=== PATIENT | female | born 1970 | race Caucasian/White ===

== ENCOUNTER 2023-08-16 10:26 | Observation (INO) ==
--- NOTE | 2023-08-16 11:18 | History & Physical Report ---
Date of Service August 16, 2023 Assessment & Plan (1) C. difficile colitis: Plan: Tested positive . Vancomycin initially worked but no longer working therefore will switch to Dificid - unable to get this outpatient today therefore will remain in hospital overnight. (2) Diarrhea: Plan: ?underlying IBD ?infectious Repeat stool PCR and c. diff PCR (3) Chronic blood loss anemia: Plan: Appears stable from outpatient labs, continue iron supplementation as outpatient (4) Hematochezia: Plan VTE Prophylaxis - contraindicated with hematochezia Diet - low fiber Disposition - admit to med/surg Admission and Anticipated Discharge Date Admission Date: August 16, 2023 History of Present Illness Chief Complaint: Bloody diarrhea Primary Care Provider: Dian Duncan PA-C Kelli Jorge is a 52 year old female who presents as a direct admission to [facility] due to bloody diarrhea. This has been going on intermittently for the last 8-9 months, getting much worse in May with intermittent blood in watery stool. C. difficile test was collected on with culture with reflex toxin PCR both positive. She was given a course of vancomycin. Calprotectin was noted to be significantly elevated at the same time at 2510 mcg/g. Vancomycin 10 days from felt 100x better. She never came off it. Called her PCP on day 8 because symptoms getting worse and she was sent another course of vancomycin which she is currently on. Last took this morning. Each day getting worse and regressing. Going twice every hour. Still bloody. Taking iron supplement since labs as outpatient came back with iron deficient anemia. Hemoglobin 10.5 [07/11]. She denies any dizziness, lightheadedness or shortness of breath. Allergies Allergy/AdvReac Type Severity Reaction Status Date / Time doxycycline Allergy Mild Vomiting Verified 12/08/21 10:32 oxybutynin Allergy Unknown "WEIRD Verified 12/08/21 10:32 EFFECTS" Penicillins Allergy Unknown HIVES Verified 12/08/21 10:32 sertraline AdvReac Unknown "WEIRD Verified 12/08/21 10:32 EFFECTS" Home Medications Medication Instructions Recorded Confirmed Type biotin 2,500 mcg capsule 5 mg PO QAM 10/02/21 08/16/23 History cetirizine 10 mg tablet (Zyrtec) 10 mg PO QAM PRN allergy 10/02/21 08/16/23 History cholecalciferol (vitamin D3) 25 25 mcg PO QAM 10/02/21 08/16/23 History mcg (1,000 unit) capsule ashwagandha root extract 300 mg 300 mg PO QAM 10/06/21 08/16/23 History capsule collagen,hydrolysate 500 mg-biotin 1 cap PO QAM 11/19/21 08/16/23 History 800 mcg-ascorbic acid 50 mg capsule fidaxomicin 200 mg tablet (Dificid) 200 mg PO BID 10 days #20 tabs 08/16/23 Rx vancomycin 125 mg capsule 125 mg PO Q6 08/16/23 08/16/23 History Past Med/Surg History Medical History (Updated 08/17/23 @ 10:30 by Lowell Gomez MD) Cholelithiasis Surgical History (Updated 12/08/21 @ 11:53 by Guicho Gomes DO, HARRY) Hx laparoscopic cholecystectomy (11/24/21) Laparoscopic Cholecystectomy(Not Applicable) - Guicho Gomes DO, FACS H/O knee surgery RIGHT S/P endometrial ablation H/O wisdom tooth extraction H/O tubal ligation Family History Grandfather (Maternal) Colorectal cancer Myocardial infarction Father Myocardial infarction Mother Hypertension Denies family history of Ovarian cancer Prostate cancer Breast cancer Social History Smoking Status: Never smoker Tobacco Type: Cigarettes Second Hand Exposure: No; Do You Dip or Chew Tobacco: No; Hx Alcohol Use: No Hx Substance Use: No Preferred Language: Czech Communication Ability: Effective Firer T[employer] Kiln Required: No Beliefs That Will Affect Care: None marital status: Current Living Situation: Alone and Family Current Living Situation Comment: lives with son current occupational status: employed current occupation: [employer] How many Children do You have: 2 Other Information That Helps Us Care for You: No Feels Safe at Home: Yes Safety Concerns: Feels Safe At This Time Childhood Exposure to Second-Hand Smoke: Yes Diet: regular caffeine: Yes during the past year weight has: remained stable Dental Care, Regularly: Yes Seatbelt Use: always Sunscreen Use: Yes Assistive Devices: None Review of Systems Review of Systems: All systems reviewed & are unremarkable except as noted in HPI & below Physical Exam Constitutional: WD/WN, vitals as above ENMT: external ear and nose normal, oropharynx normal Mouth: oral mucous membranes not dry Respiratory: normal respiratory effort, lungs clear to auscultation Cardiovascular: RRR, no murmur, no edema Gastrointestinal (Abdomen): normal bowel sounds, soft, nontender, no hepatosplenomegaly Musculoskeletal: no cyanosis or clubbing, extremities motor strength 5/5 Skin: no rashes, warm and dry Neurologic: moves all extremities and awake; not confused Code Status & VTE Plan Code Status Full PG Care Time/CCT Total # of Minutes Spent Total Time Spent with Patient: Total time spent is greater than 50% in coordination of care (as documented) at patient's floor/unit and/or counseling patient: Coding Level of Care Code 08997 INT INP/OBS CARE 2/55MIN Diagnoses C. difficile colitis A04.72 Diarrhea R19.7 Chronic blood loss anemia D50.0 Hematochezia K92.1
[2023-08-16] MEDS: FIDAXOMICIN 200 MG TAB PO SCH (13:51)
[2023-08-16 14:18] LABS: Basophils # (auto) 0.06 K/uL (0.00-0.20); Eosinophils # (auto) 0.26 K/uL (0.00-0.50); Eosinophils % (auto) 4.2 %; Hematocrit (blood only) 32.5 % (37.0-47.0); Hemoglobin 9.9 g/dl (12.0-16.0); Immature Granulocytes # (auto) 0.01 K/uL (0.01-0.20); Immature Granulocytes % (auto) 0.2 %; Lymphocytes # (auto) 1.07 K/uL (1.20-3.40); Lymphocytes % (auto) 17.2 %; Mean Corpuscular Hemoglobin 23.8 pg (25.0-34.0); Mean Corpuscular Hgb Conc 30.5 g/dL (32.0-36.0); Mean Corpuscular Volume 78.1 fL (80.0-100.0); Mean Platelet Volume 9.3 fL (9.4-12.4); Monocytes # (auto) 0.39 K/uL (0.11-0.59); Monocytes % (auto) 6.3 %; Neutrophils # (auto) 4.44 K/uL (1.40-6.50); Neutrophils % (auto) 71.1 %; Platelet Count 327 K/uL (130-400); RDW Coefficient of Variation 14.1 % (11.5-14.5); RDW Standard Deviation 39.8 fL (36.4-46.3); Red Blood Count 4.16 M/uL (4.20-5.40); White Blood Count 6.23 K/ul (4.8-10.8)
[2023-08-16 14:38] LABS: Albumin Globulin Ratio 1.4 (0.9-2); Albumin Level 4.3 gm/dl (3.4-5.0); BUN Creatinine Ratio 17.2 (10-20); Bilirubin,Total 0.3 mg/dl (0.2-1.0); Calcium 9.7 mg/dl (8.6-10.3); Creatinine Clr Calc Pharmacy 99.6 ml/min; Est GFR (African American) 120.6 ml/min; Est GFR (Non-African American) 104.1 ml/min; Magnesium 2.1 mg/dl (1.7-2.4); Potassium 4.1 mmol/L (3.5-5.1); Total Protein 7.3 gm/dl (6.0-8.3)
[2023-08-16 14:46] LABS: Partial Thromboplastin Ratio 0.9; Partial Thromboplastin Time 25 Seconds (21-31); Prothrombin Time 10.5 Seconds (9.0-12.0)
[2023-08-16 16:58] LABS: Adenovirus F 40/41 PCR Not Detected (NotDetected); Astrovirus PCR Not Detected (NotDetected); Campylobacter PCR Not Detected (NotDetected); Cryptosporidium PCR Not Detected (NotDetected); Cyclospora cayetanensis PCR Not Detected (NotDetected); Entamoeba histolytica PCR Not Detected (NotDetected); Enteroaggregative E.coli(EAEC) Not Detected (NotDetected); Enteropathogenic E.coli (EPEC) Not Detected (NotDetected); Enterotoxigenic E.coli (ETEC) Not Detected (NotDetected); Giardia lamblia PCR Not Detected (NotDetected); Norovirus GI/GII PCR Not Detected (NotDetected); Plesiomonas shigelloides PCR Not Detected (NotDetected); Rotavirus A PCR Not Detected (NotDetected); Salmonella PCR Not Detected (NotDetected); Sapovirus PCR Not Detected (NotDetected); Shiga-like Toxin E.coli (STEC) Not Detected (NotDetected); Shigella/Enteroinvasive E.coli Not Detected (NotDetected); Yersinia enterocolitica PCR Not Detected (NotDetected)
[2023-08-16] MEDS: AZITHROMYCIN 250 MG TAB PO ONE (17:45)
--- NOTE | 2023-08-16 19:19 | Communication Note ---
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 Discussed with patient. Noted she has side effect of vomiting for doxycycline therefore will give one off dose azithromycin 1000mg PO. Recommend repeat testing as this would be a very unusual case. C. diff now negative therefore will discontinue further Dificid. Result needs to be reported to [facility] Communicable Disease ([phone]) within 24 hours, closed at the current time.
[2023-08-16] MEDS ORDERED: ONDANSETRON INJ 2 MG/ML 2 ML VIAL IV PRN (21:37)
[2023-08-16] MEDS ORDERED: ACETAMINOPHEN 325 MG TAB PO PRN (21:37)
--- OUTSIDE RECORDS SUMMARY | 2023-08-16 23:03 | External Medical Summary | Continuity of Care Document ---
Author Name Unknown Organization [facility] [address] [facility] Address [address] [place], [place] [id number] Care Team Providers Care Microelectronics Technician Name Role Phone Dian Duncan Primary Care Physician [phone] [id number] Date[facility]s): 07/11/23 - 07/11/23 [facility] [id number], [address] [place] [address] [phone] Encounter Diagnosis Bloody stools(Discharge Diagnosis) - 07/11/23 Change in bowel habits(Discharge Diagnosis) - 07/11/23 Diarrhea(Discharge Diagnosis) - 07/11/23 Diffuse abdominal pain(Discharge Diagnosis) - 07/11/23 Abdominal mass(Discharge Diagnosis) - 07/11/23 GERD (gastroesophageal reflux disease)(Discharge Diagnosis) - 07/11/23 Discharge Disposition: Home or Self Care Attending Physician: SHELBY Duncan Jessica A Allergies, Adverse Reactions, Alerts Substance Reaction Severity Status doxycycline vomiting Active oxybutynin blurred vision Active penicillins hives Active Zoloft 1 Active 1Worked well for depression, but had moderate weight gain. Assessment and Plan Extracted from: Title:bloody diarrhea, abd fullness/mass, change in bowel habits Author:SHELBY Duncan Jessica A Date:07/11/23 1.Bloody stools Bloody stools have been chronic, intermittentand worsening. Goal is resolution of symptoms and etiologyis unclear,but concerning. Differential diagnoses:Inflammatory bowel disease, neoplasm, hemorrhoids, mass/tumor, PUD, infectious colitis, diverticulitis, other etiology. CBC with differential, CMP, TSH, celiac screening, ESR, CRP and stool studiesordered, including C. difficile, stool cultures and fecal calprotectin level. Also, givenfirmness and possible mass palpable on examination stat CT scan of the abdomen and pelviswith oral and IV contrast was ordered. I will contact patientonce these results are received. Recommend proceeding with colonoscopy as well and patient is agreeable. Order will be placed for colonoscopy once results of CT scan is received. 2.Change in bowel habits Change in bowel habits is new in the last 1 to 2 months and uncontrolled. Goal is resolution of symptoms. As above in #1. 3.Diarrhea Diarrheaissubacute on chronic and uncontrolled. Goal is resolution of symptoms. As above in #1. 4.Diffuse abdominal pain Diffuse abdominal pain is subacute on chronic and uncontrolled. Goal is resolution of symptoms. As above in #1. 5.Abdominal mass As above in #1. 6.GERD (gastroesophageal reflux disease) GERD is subacute on chronic and uncontrolled. Goal is resolution of symptoms. Startomeprazole 40 mg, 1 tab p.o. every morning x 8 weeks. Will also plan toget an EGD at the same time as her colonoscopy, but workupwill first be completed as above in #1. Time spent on pre-visit plannin minutes on chart review Face to face time spent w/ patient:24 minutes Time spent documenting pertinent clinical information into the EMR:10 minutes Total time: 34 minutes Medications [facility] Start: 03/04/21 15:59:00 [facility] Start Date: 03/04/21 Status: Ordered biotin 5000 mcg oral capsule Start: 10/04/19 13:25:00 EDT, See Instructions, take1 tablet PO daily Start Date: 10/04/19 Status: Ordered collagen topical powder Start: 10/02/20 13:57:00 EDT, See Instructions, Note to Pharmacy: 1 scoop per day in smoothie or water Start Date: 10/02/20 Status: Ordered ferrous sulfate 325 mg (65 mg elemental iron) oral tablet Start: 07/12/23 16:09:00 EST, 1 tab, PO, Daily, Disp# 30 tab, Refills: 5, may take with food to minimize abdominal discomfort, [id number] Start Date: 07/12/23 Stop Date: 01/08/24 Status: Ordered magnesium gluconate 500 mg oral tablet Start: 01/29/21 9:52:00 EDT, 2 tab, PO, Daily Start Date: 01/29/21 Status: Ordered omeprazole 40 mg oral delayed release capsule Start: 07/11/23 13:46:00 EST, 1 cap, PO, Daily, Disp# 30 cap, Refills: 1, Pharmacy: [facility] #[id number] Start Date: 07/11/23 Stop Date: 09/09/23 Status: Ordered Suprep Bowel Prep Kit oral liquid Start: 07/13/23 17:06:00 EST, See Instructions, Disp# 354 mL, Refills: 0, Take as directed., [id number] Start Date: 07/13/23 Status: Ordered Vitamin D3 1000 intl units (25 mcg) oral tablet Start: 03/04/21 16:00:00 EDT, 1 tab, PO, Daily Start Date: 03/04/21 Status: Ordered ZyrTEC 10 mg oral tablet Start: 01/29/21 9:55:00 EDT, 1 tab, PO, Daily, PRN: as needed for allergy symptoms Start Date: 01/29/21 Status: Ordered Mental Status 07/11/23 Barriers to Learning one year None evide nt Mandatory Health Literacy Documentation Yes Health Literacy Communication Barriers N ever Primary Language [place] Problem List Condition Confirmation Course Effective Dates Status Health St atus Informant Anxiety Confirmed Active General examination finding Confirmed Active IT band syndrome Confirmed Active Right knee pain Confirmed Active Depression, major Confirmed Active Migraine Confirmed Active Pain 1 Confirmed Active PMDD (premenstrual dysphoric disorder) Confirmed Active Knee MCL sprain Confirmed Active Tear of medial meniscus of right knee Confirmed Active Weight disorder Confirmed Active 1right knee Diagnosis Diagnosis Type Effective Dates Health Status Cl inical Service Informant Change in bowel habits Discharge Diagnosis 07/11/23 Diffuse abdominal pain Discharge Diagnosis 07/11/23 Diarrhea Discharge Diagnosis 07/11/23 Abdominal mass Discharge Diagnosis 07/11/23 Bloody stools Discharge Diagnosis 07/11/23 GERD (gastroesophagea l reflux disease) Discharge Diagnosis 07/11/23 Procedures Procedure Date Related Diagnosis Body Site Status CT of abdomen and pelvis wit h contrast 1 07/11/23 Completed Laparoscopic cholecystectomy 2 11/25/21 Completed Ultrasound scan of upper abdomen 3 09/24/21 Completed Diagnostic mammogram 4 03/12/21 Co mpleted Arthroscopic partial medial meniscectomy of right knee 5 11/12/15 Com pleted X-ray of right knee 6 09/03/15 Com pleted LASIK 7 Completed [facility]: [facility]. No acute abnormalities are seen to explain abdominal pain [facility]: 1. Cholelithiasis without sonographic evidence of acute cholecystitis 4Rebecca Jorge Impression: ACR BI-RADS CATEGORY 2: BENIGN, ULTRASOUND ACR BI-RADS CATEGORY 2: BENIGN 1. No suspicious mammographic or sonographic abnormality at the sites of the bilateral upper outer quadrant breast lumps and associated cyclical tenderness pointed out by the patient. No evidence of malignancy [facility] 6No acute fractures or dislocations. 7eye surgery Results Laboratory List Name Date CBC w/ Diff. (CBC w/ Diff-ARLN) 07/11/23 Comprehensive Metabolic Panel. (Comprehe nsive Metabolic Panel-[facility]) 07/11/23 IgA. (IgA-[facility]) 07/11/23 Thyroid Stimulating Hormone. (Thyroid St imulating Hormone-[facility]) 07/11/23 Tissue Transglutaminase Ab, IgA -[facility] ( Tissue Transglutaminase Ab, IgA-[facility]) 07/11/23 Most recent to oldest [Reference Range]: 1 Bilirubin, Total (QST) [0.2-1.2 mg/dL] 0 .4 mg/dL 1 (07/11/23 2:00 PM) WBC Count-[facility] [3.8-10.8 Thousand/uL] 6 .5 Thousand/uL 2 (07/11/23 2:00 PM) CRP-[facility] [<8.0 mg/L] 2.5 mg/L 3 (07/11/23 2:00 PM) Iron-[facility] [45-160 mcg/dL] 24 mcg/dL 4 *LOW* (07/11/23 2:00 PM) BUN-[facility] [7-25 mg/dL] 9 mg/dL 5 (07/11/23 2:00 PM) Creatinine-[facility] [0.50-1.03 mg/dL] 0.77 mg/dL 6 (07/11/23 2:00 PM) BUN/Creat Ratio-[facility] [6-22 (calc)] SEE NOTE: (calc) 7 (07/11/23 2:00 PM) Na-[facility] [135-146 mmol/L] 140 mmol/L 8 (07/11/23 2:00 PM) K-[facility] [3.5-5.3 mmol/L] 4.2 mmol/L 9 (07/11/23 2:00 PM) Cl-[facility] [98-110 mmol/L] 103 mmol/L 10 (07/11/23 2:00 PM) CO2-[facility] [20-32 mmol/L] 28 mmol/L 11 (07/11/23 2:00 PM) Ca-[facility] [8.6-10.4 mg/dL] 9.6 mg/dL 12 (07/11/23 2:00 PM) MPV-[facility] [7.5-12.5 fL] 10.0 fL 13 (07/11/23 2:00 PM) Absolute Neutrophils-[facility] [4666-4975 ce lls/uL] 4368 cells/uL 14 (07/11/23 2:00 PM) Absolute Lymphocytes-[facility] [850-3900 enoch ls/uL] 1222 cells/uL 15 (07/11/23 2:00 PM) Absolute Monocytes-[facility] [200-950 cells/ uL] 468 cells/uL 16 (07/11/23 2:00 PM) Absolute Eosinophils-[facility] [15-500 cells /uL] 390 cells/uL 17 (07/11/23 2:00 PM) Absolute Basophils-[facility] [0-200 cells/uL ] 52 cells/uL 18 (07/11/23 2:00 PM) Neutrophils-[facility] 67.2 % 19 (07/11/23 2:00 PM) Lymphocytes-[facility] 18.8 % 20 (07/11/23 2:00 PM) Monocytes-[facility] 7.2 % 21 (07/11/23 2:00 PM) Eosinophils-[facility] 6.0 % 22 (07/11/23 2:00 PM) Basophils-[facility] 0.8 % 23 (07/11/23 2:00 PM) Globulin-[facility] [1.9-3.7 g/dL (calc)] 2.5 g/dL (calc) 24 (07/11/23 2:00 PM) A/G Ratio-[facility] [1.0-2.5 (calc)] 1.7 (ca lc) 25 (07/11/23 2:00 PM) ESR-[facility] [< OR = 20] 29 26 *HI* (07/11/23 2:00 PM) Hemoglobin Refl [11.7-15.5 g/dL] 10.5 g/ dL 27 *LOW* (07/11/23 2:00 PM) Hematocrit Refl [35.0-45.0 %] 33.2 % 28 *LOW* (07/11/23 2:00 PM) RBC Refl [3.80-5.10 Million/uL] 4.21 Mil lion/uL 29 (07/11/23 2:00 PM) MCV Refl [80.0-100.0 fL] 78.9 fL 30 *LOW* (07/11/23 2:00 PM) MCH Refl [27.0-33.0 pg] 24.9 pg 31 *LOW* (07/11/23 2:00 PM) RDW Refl [11.0-15.0 %] 13.9 % 32 (07/11/23 2:00 PM) Alkaline Phosphatase (ALP) [37-153 U/L] 91 U/L 33 (07/11/23 2:00 PM) Albumin, Serum [3.6-5.1 g/dL] 4.3 g/dL 3 4 (07/11/23 2:00 PM) Immunoglob A [47-310 mg/dL] 176 mg/dL 35 (07/11/23 2:00 PM) ALT [6-29 U/L] 11 U/L 36 (07/11/23 2:00 PM) tTG-IgA Ab <1.0 U/mL 37 (07/11/23 2:00 PM) eGFR-QST [> OR = 60 mL/min/1.73m2] 94 mL /min/1.73m2 38 (07/11/23 2:00 PM) MCHC (QST) [32.0-36.0 g/dL] 31.6 g/dL 39 *LOW* (07/11/23 2:00 PM) Ferritin (QST) [16-232 ng/mL] 4 ng/mL 40 *LOW* (07/11/23 2:00 PM) TSH (QST) 0.79 mIU/L 41 (07/11/23 2:00 PM) AST [10-35 U/L] 15 U/L 42 (07/11/23 2:00 PM) Glucose-Qst [65-99 mg/dL] 99 mg/dL 43 (07/11/23 2:00 PM) Platelet Count [140-400 Thousand/uL] 366 Thousand/uL 44 (07/11/23 2:00 PM) Total Protein-QST [6.1-8.1 g/dL] 6.8 g/d L 45 (07/11/23 2:00 PM) 1Result Comment: Specimen Received d/t: 07/12/2023 03:24:00 Lab test performed by: [employer] [facility] [employer] [address] [place] [address]Pratik Maurice MD 2Result Comment: Specimen Received d/t: 07/12/2023 03:24:00 Lab test performed by: [facility] [employer] [address] [place] [address] Milvia Maurice MD 3Result Comment: Specimen Received d/t: 07/12/2023 03:24:00 Lab test performed by: [facility] [employer] Milvia Maurice MD 4Result Comment: Specimen Received d/t: 07/12/2023 03:24:00 Lab test performed by: [employer] [facility] [employer] Milvia Maurice MD 5Result Comment: Specimen Received d/t: 07/12/2023 03:24:00 Lab test performed by: [facility] [employer] [place], [place] Milvia Maurice MD 6Result Comment: Specimen Received d/t: 07/12/2023 03:24:00 Lab test performed by: [employer] [facility] [employer] [address] [place] Milvia Maurice MD 7Result Comment: Not Reported: BUN and Creatinine are within reference range. Specimen Received d/t: 07/12/2023 03:24:00 Lab test performed by: [employer] [facility] [employer] Milvia Maurice MD 8Result Comment: Specimen Received d/t: 07/12/2023 03:24:00 Lab test performed by: [employer] [facility] [employer] [address] [place] Milvia Maurice MD 9Result Comment: Specimen Received d/t: 07/12/2023 03:24:00 Lab test performed by: [employer] [facility] [employer] [address] [place] Milvia Maurice MD 10Result Comment: Specimen Received d/t: 07/12/2023 03:24:00 Lab test performed by: [employer] [facility] [employer] [address] [place] Milvia Maurice MD 11Result Comment: Specimen Received d/t: 07/12/2023 03:24:00 Lab test performed by: [employer] [facility] [employer] [address] [place] Milvia Maurice MD 12Result Comment: Specimen Received d/t: 07/12/2023 03:24:00 Lab test performed by: [employer] [facility] [employer] [address] [place] Milvia Maurice MD 13Result Comment: Specimen Received d/t: 07/12/2023 03:24:00 Lab test performed by: [employer] [facility] [employer] [address] [place] Milvia Maurice MD 14Result Comment: Specimen Received d/t: 07/12/2023 03:24:00 Lab test performed by: [employer] [facility] [employer] [address] [place] Milvia Maurice MD 15Result Comment: Specimen Received d/t: 07/12/2023 03:24:00 Lab test performed by: [employer] [facility] [employer] [address] [place] Milvia Maurice MD 16Result Comment: Specimen Received d/t: 07/12/2023 03:24:00 Lab test performed by: [facility] [employer], [facility] [employer] [address] [place] [address] Toi Maurice MD 17Result Comment: Specimen Received d/t: 07/12/2023 03:24:00 Lab test performed by: [facility] [employer], [facility] [employer] [address] [place] [address] Toi Maurice MD 18Result Comment: Specimen Received d/t: 07/12/2023 03:24:00 Lab test performed by: [facility] [employer], [facility] [employer] [address] [place] [address] Toi Maurice MD 19Result Comment: Specimen Received d/t: 07/12/2023 03:24:00 Lab test performed by: [employer], [facility] [employer] [address] [place] [address] Toi Maurice MD 20Result Comment: Specimen Received d/t: 07/12/2023 03:24:00 Lab test performed by: [employer], [facility] [employer] [address] [place] [address] Toi Maurice MD 21Result Comment: Specimen Received d/t: 07/12/2023 03:24:00 Lab test performed by: [employer] [facility] [employer] [address] [place] [address] Toi Maurice MD 22Result Comment: Specimen Received d/t: 07/12/2023 03:24:00 Lab test performed by: [employer], [facility] [employer] [address] [place] [address] Toi Maurice MD 23Result Comment: Specimen Received d/t: 07/12/2023 03:24:00 Lab test performed by: [facility] [employer], [facility] [employer] [address] [place] [address] Toi Maurice MD 24Result Comment: Specimen Received d/t: 07/12/2023 03:24:00 Lab test performed by: [facility] [employer], [facility] [employer] [address] [place] [address] Toi Maurice MD 25Result Comment: Specimen Received d/t: 07/12/2023 03:24:00 Lab test performed by: [employer] [facility] [employer] [address] [place] [address] Toi Maurice MD 26Result Comment: Specimen Received d/t: 07/12/2023 03:24:00 Lab test performed by: [employer] [facility] [employer] [address] [place] [address] Toi Maurice MD 27Result Comment: Specimen Received d/t: 07/12/2023 03:24:00 Lab test performed by: [employer] [facility] [employer] [address] [place] [address] Toi Maurice MD 28Result Comment: Specimen Received d/t: 07/12/2023 03:24:00 Lab test performed by: [employer] [facility] [employer] [address] [place] [address] Toi Maurice MD 29Result Comment: Specimen Received d/t: 07/12/2023 03:24:00 Lab test performed by: [employer] [facility] [employer] [address] [place] [address] Toi Maurice MD 30Result Comment: Specimen Received d/t: 07/12/2023 03:24:00 Lab test performed by: [employer] [facility] [employer] [address] [place] [address] Toi Maurice MD 31Result Comment: Specimen Received d/t: 07/12/2023 03:24:00 Lab test performed by: [employer] [facility] [employer] [address] [place] [address]Pratik Maurice MD 32Result Comment: Specimen Received d/t: 07/12/2023 03:24:00 Lab test performed by: [employer] [facility] [employer] [address] [place] Milvia Maurice MD 33Result Comment: Specimen Received d/t: 07/12/2023 03:24:00 Lab test performed by: [employer] [facility] [employer] [address] [place], [place] Milvia Maurice MD 34Result Comment: Specimen Received d/t: 07/12/2023 03:24:00 Lab test performed by: [employer] [facility] [employer] [address] [place] [address] Milvia Maurice MD 35Result Comment: Specimen Received d/t: 07/12/2023 03:24:00 Lab test performed by: [employer] [facility] [employer] Milvia Maurice MD 36Result Comment: Specimen Received d/t: 07/12/2023 03:24:00 Lab test performed by: [employer] [facility] [employer] Milvia Maurice MD 37Result Comment: Value Interpretation ----- <15.0 Antibody not detected > or = 15.0 Antibody detected Specimen Received d/t: 07/12/2023 03:24:00 Lab test performed by: [employer] [facility] [employer] [address] [place] [address] Milvia Maurice MD 38Result Comment: Specimen Received d/t: 07/12/2023 03:24:00 Lab test performed by: [employer] [facility] [employer] [address] [place], [place] [address] [place], [place] Milvia Maurice MD 39Result Comment: Specimen Received d/t: 07/12/2023 03:24:00 Lab test performed by: [employer] [facility] [employer] [address] [place], [place] [address] [place], [place] Milvia Maurice MD 40Result Comment: Specimen Received d/t: 07/12/2023 03:24:00 Lab test performed by: [facility] [address] Toi Maurice MD 41Result Comment: Reference Range > or = 20 Years 0.40-4.50 Ranges First trimester 0.26-2.66 Second trimester 0.55-2.73 Third trimester 0.43-2.91 FASTING:UNKNOWN FASTING: UNKNOWN Specimen Received d/t: 07/12/2023 03:24:00 Lab test performed by: [employer] [facility] [employer] [place] [address] Toi Maurice MD 42Result Comment: Specimen Received d/t: 07/12/2023 03:24:00 Lab test performed by: [employer] [facility] [address] [place] [address] Toi Maurice MD 43Result Comment: Fasting reference interval Specimen Received d/t: 07/12/2023 03:24:00 Lab test performed by: [employer] [facility] [employer] [address] Toi Maurice MD 44Result Comment: Specimen Received d/t: 07/12/2023 03:24:00 Lab test performed by: [employer] [facility] [employer] [place] [address] Toi Maurice MD 45Result Comment: Specimen Received d/t: 07/12/2023 03:24:00 Lab test performed by: [facility] [address] [address] Toi Maurice MD Vital Signs Most recent to oldest [Reference Range]: 1 Patient Weight 76 kg (07/11/23 1:14 PM) Temperature [36.5-37.9 DegC] 36.7 DegC (07/11/23 1:14 PM) Heart Rate 82 bpm (07/11/23 1:14 PM) Respiratory Rate 16 br/min (07/11/23 1:14 PM) Blood Pressure 116/74mmHg (07/11/23 1:14 PM) Cuff Pulse Pressure 42 mmHg (07/11/23 1:14 PM) BP Location # 1 Left Arm, Manual (07/11/23 1:14 PM) Social History Social History Type Response 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 I thought it would go away, but its gottenprogressively worse." Teresa started to notice intermittent bright red blood in her stool about 8 to 9 months ago. She would have bright red stool in the toilet and on toilet paper when wiping. Also noticed that stools were darker in color. Symptoms then worsened in the last 1 to 2 months. Has hada change in bowel habitsand worsening hematochezia. She would previously have a solid stool once daily and normal stoolis very loosely formed to diarrhea and isgoing to the bathroom 20-30 times per day.Sometimes she feels like she has to have a BM, but only passes flatulence orbright red blood. "It looks like someone got murdered in my toilet."Hematochezia is occuring almost daily.She has also hadabdominal bloating, fullnessand increased gas. Has diffuse abdominaldiscomfort that is fairly constant. Abdominal pain extends from epigastrium to suprapubic region. Describes it as a sense of burning to cramping and "it feels like my stomach is trying to eat itselffrom the inside out." Pain is typically worse after eating and just prior to bowel movement, but will beslightly improved after BM. Abdominal discomfort, diarrhea and hematochezia seems to be worse when stressed,after eatingspicy foodsand Marshallese foods. Feels her abdomen looks moredistended than usual and feels firm. Has had heartburn as well w/ acid regurgitation in her mouth. Has tried taking Pepto-Bismol, Pepcid AC, Tums, [place], Mylantaand OTC omeprazole 20 mgperiodically that help only very temporarily. Has not had menstrual cycle in several years that she had a uterine ablationaround the age of 32 yo. Ovaries and uterus are intact. History of laparoscopic cholecystectomy. Has not had a colonoscopy in the past. Positive FmHx of colon cancerin PGF and her father was recently diagnosed wi th high-grade dysplasiain a duodenal polyp. No ETOH, tobacco or drug use. No regular use of NSAIDs or ASA. + urinary frequency at times and says "it feels like there's something pressing on my bladder." Nofever, chills, night sweats, unintentional weight loss, nausea, vomiting, voice changes, dysphagia, odynophagia, rashes, jaundice, pruritus, anal pain, analdischarge, dysuria,hematuria, malodorous urine, cloudy urine, low back or flank pain. Review of Systems ROS:All other systems negative, except HPI. Physical Exam Vitals & Measurements T:36.7C HR:82(Monitored) RR:16 BP:116/74 SpO2:97% WT:76.000kg(Dosing) WT:76kg PHQ2 Data(Data Documented on:07/11/2023 13:14) Emotional health assessment NEGATIVE General: Alert and oriented, No acute distress.Pleasant. Eye: Pupils are equal, round and reactive to light, Extraocular movements are intact, Normal conjunctiva. HENT: Normocephalic. TMs clear bilaterally. Posterior pharynx is pink. Uvula rises midline. No drooling, stridor or cyanosis. Neck: Supple, No lymphadenopathy, No thyromegaly. Respiratory: Lungs are clear to auscultation, Respirations are non-labored, Breath sounds are equal, Symmetrical chest wall expansion. Cardiovascular: Normal rate, Regular rhythm, No murmur, No gallop, Good pulses equal in all extremities, Normal peripheral perfusion. No LE edema. Abdomen: Normoactive BS x 4. + mild diffuse tenderness at is increased at LLQ and RLQ. + firmness and possible mass palpable at both areas as well. No obvious organomegalyor rebound tenderness. Declined digital rectal examination. Lymphatics: No submandibular, anterior or posterior cervical adenopathy palpable. Musculoskeletal Normal gait. FROM and 5/5 strength at BLE and BUE. Integumentary: Warm, [place], No pallor. Neurologic: Alert, Oriented, Cranial Nerves II-XII are grossly intact. Cognition and Speech: Oriented, Speech clear and coherent, Functional cognition intact. Psychiatric: Cooperative, Appropriate mood & affect, Normal judgment, Nonsuicidal. Assessment/Plan 1.Bloody stools Bloody stools have been chronic, intermittentand worsening. Goal is resolution of symptoms and etiologyis unclear,but concerning. Differential diagnoses:Inflammatory bowel disease, neoplasm, hemorrhoids, mass/tumor, PUD, infectious colitis, diverticulitis, other etiology. CBC with differential, CMP, TSH, celiac screening, ESR, CRP and stool studiesordered, including C. difficile, stool cultures and fecal calprotectin level. Also, givenfirmness and possible mass palpable on examination stat CT scan of the abdomen and pelviswith oral and IV contrast was ordered. I will contact patientonce these results are received. Recommend proceeding with colonoscopy as well and patient is agreeable. Order will be placed for colonoscopy once results of CT scan is received. 2.Change in bowel habits Change in bowel habits is new in the last 1 to 2 months and uncontrolled. Goal is resolution of symptoms. As above in #1. 3.Diarrhea Diarrheaissubacute on chronic and uncontrolled. Goal is resolution of symptoms. As above in#1. 4.Diffuse abdominal pain Diffuse abdominal pain is subacute on chronic and uncontrolled. Goal is resolution of symptoms. As above in #1. 5.Abdominal mass As above in #1. 6.GERD (gastroesophageal reflux disease) GERD is subacute on chronic and uncontrolled. Goal is resolution of symptoms. Mzbbaejeyxikonk35 mg, 1 tab p.o. every morning x 8 weeks. Will also plan toget an EGD at the same time as her colonoscopy, but workupwill first be completed as above in #1. 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 IT band syndrome Knee MCL sprain Migraine Pain PMDD (premenstrual dysphoric disorder) Right knee pain Tear of medial meniscus of right knee Weight disorder Procedure/Surgical History Laparoscopic cholecystectomy (11/25/2021)Ultrasound scan of upper abdomen (09/24/2021)Diagnostic mammogram (03/12/2021)Arthroscopic partial medial meniscectomy of right knee (11/12/2015)X-ray of right knee (09/03/2015)LASIKTubal ligation Medications biotin(biotin 5000 mcg oral capsule), See Instructions cetirizine(ZyrTEC 10 mg oral tablet), 10 mg= 1 tab, PO, Daily, PRN cholecalciferol(Vitamin D3 1000 intl units (25 mcg) oral tablet), 25 mcg= 1 tab, PO, Daily collagen topical(collagen topical powder), See Instructions magnesium gluconate(magnesium gluconate 500 mg oral tablet), 1000 mg= 2 tab, PO, Daily omeprazole(omeprazole 40 mg oral delayed release capsule), 40 mg= 1 cap, PO, Daily, 1 refills unlisted medication(ashwagandha) Allergies Zoloft doxycyclinevomiting oxybutyninblurred vision penicillinshives Social History Smoking Status Never smoked cigarettes Alcohol Use:Current Type:Wine, Liquor Frequency:1-2 times per year Employment/School Status: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 Heart attack: Father. Hypertension: Father. Thyroid disease: Mother. Type II diabetes mellitus: Mother. Health Status Family Member(s) Recommendations Health Maintenance Pending(in the next year) OverDue Breast Cancer Screening due03/13/22and every 366day Body Mass Index due06/16/22and every 366day Adult Influenza Vaccine due11/19/22and every 1year Due Adult COVID-19 Vaccination due07/11/23Unknown Frequency Adult Social Determinants of Health Screening due07/11/23Unknown Frequency Adult Tdap/Td Vaccine due07/11/23Unknown Frequency Cervical Cancer Screening due07/11/23Unknown Frequency Colorectal Cancer Screening due07/11/23nown Frequency Hepatitis C Screening due07/11/23One-time only Lipid Screening due07/11/23nown Frequency Shingles Vaccine due07/11/23One-time only Satisfied(in the past 1 year) There are no satisfied recommendations within the defined date range Patient Care team information Care Team Personnel Name: SHELBY Duncan, Dian Edmonds Position: Physician Asst [facility] - Family Med Member Role: Primary Care Provider Address: Address: [address] [place] [address] [address] [place] [address] Care Team Related Persons Name: JERRI JORGE Address: [place] Address: [address] [facility] [id number] Name: YENI NGUYEN
[2023-08-17 09:19] LABS: Vibrio species PCR Not Detected (NotDetected)
[2023-08-17 09:22] LABS: Vibrio cholerae PCR Not Detected (NotDetected)
[2023-08-17] MEDS: FIDAXOMICIN 200 MG TAB PO SCH (11:01)
[2023-08-17 11:25] LABS: Basophils # (auto) 0.06 K/uL (0.00-0.20); Basophils % (auto) 1.2 %; Eosinophils # (auto) 0.28 K/uL (0.00-0.50); Eosinophils % (auto) 5.6 %; Hemoglobin 10.2 g/dl (12.0-16.0); Immature Granulocytes # (auto) 0.02 K/uL (0.01-0.20); Immature Granulocytes % (auto) 0.4 %; Lymphocytes # (auto) 1.01 K/uL (1.20-3.40); Lymphocytes % (auto) 20.4 %; Mean Corpuscular Hemoglobin 23.6 pg (25.0-34.0); Mean Corpuscular Volume 78.5 fL (80.0-100.0); Mean Platelet Volume 9.3 fL (9.4-12.4); Monocytes # (auto) 0.43 K/uL (0.11-0.59); Monocytes % (auto) 8.7 %; Neutrophils # (auto) 3.16 K/uL (1.40-6.50); Neutrophils % (auto) 63.7 %; Platelet Count 332 K/uL (130-400); RDW Coefficient of Variation 13.8 % (11.5-14.5); RDW Standard Deviation 39.5 fL (36.4-46.3); Red Blood Count 4.33 M/uL (4.20-5.40); White Blood Count 4.96 K/ul (4.8-10.8)
[2023-08-17 11:34] LABS: Alanine Aminotransferase 12 U/L (7-52); Albumin Globulin Ratio 1.3 (0.9-2); Albumin Level 4.3 gm/dl (3.4-5.0); Alkaline Phosphatase 85 U/L (34-104); Anion Gap 6 (3-11); Aspartate Aminotransferase 14 U/L (13-39); BUN Creatinine Ratio 18.8 (10-20); Bilirubin,Total 0.4 mg/dl (0.2-1.0); Blood Urea Nitrogen 12 mg/dl (6-23); C Reactive Protein < 0.50 mg/dl (0-0.5); Calcium 9.4 mg/dl (8.6-10.3); Carbon Dioxide 29 mmol/L (21-32); Chloride 103 mmol/L (98-107); Creatinine Clr Calc Pharmacy 99.6 ml/min; Est GFR (African American) 120.6 ml/min; Est GFR (Non-African American) 104.1 ml/min; Globulin 3.3 gm/dl (2.5-4.0); Glucose 103 mg/dl (70-99(Fasting)); Iron 18 mcg/dl (35-150); Magnesium 2.2 mg/dl (1.7-2.4); Potassium 4.2 mmol/L (3.5-5.1); Sodium 138 mmol/L (136-145); Total Iron Binding Cap Calc 458 mcg/dl (250-450); Total Protein 7.6 gm/dl (6.0-8.3); Transferrin (FE) Percent Satur 4 % (15-50); Unsaturated Iron Binding Cap 440 mcg/dl (155-355)
[2023-08-17 11:47] LABS: Thyroid Stimulating Hormone 0.682 uIu/ml (0.300-4.500)
[2023-08-17 11:53] LABS: Ferritin 4.1 ng/ml (8-388)
[2023-08-17 11:54] LABS: Folate (Folic Acid),Ser orPlas 13.97 ng/ml (>5.38)
--- NOTE | 2023-08-17 13:13 | Gastrointestinal Consultation ---
Date of Consultation August 17, 2023 Assessment & Plan (1) Chronic blood loss anemia: (2) Diarrhea: (3) Hematochezia: Plan Patient is a 52-year-old female with chronic diarrhea and blood in stool with a microscopic anemia. -Patient is not currently n.p.o. and therefore no GI workup can be performed today. -Continue supportive care per primary team. -If patient is discharged today, recommend outpatient follow-up with [facility] to discuss rescheduling her EGD and colonoscopy. Otherwise, ongoing GI management per Dr. Barnes tomorrow. Supervising Physician Co-Signing Physician Notes Agree with ADRIEN Cardoso as above Abd: Soft, NT, ND, +BS Continue current therapy and supportive care Outpatient colonoscopy with [facility] next week History of Present Illness Reason for Consultation: Dr. Coleman Requesting Physician: Bloody diarrhea Attending Physician: Lizeth Coleman MD History of Present Illness Patient is a 52-year-old female seen in consultation today [facility] coverage in regard to chronic bloody diarrhea which she states has been ongoing for approximately 9 months. She has been following with [facility] as an outpatient for workup of symptoms. She was initially scheduled for an EGD and colonoscopy given her symptoms of microscopic anemia on 07/25/2023. She states the procedures were canceled, however, due to poor bowel preparation. She was rescheduled for yesterday with Dr. Fontenot as an outpatient was once again canceled due to history of C. difficile which was diagnosed on 07/21/2023. She did complete a course of vancomycin as an outpatient. On arrival, her hemoglobin and hematocrit were 9.9 and 32.5 and stable at 10.2 and 34.0 today. ESR was elevated at 38. Was noted to have an outpatient fecal calprotectin of 2510. Stool PCR performed on admission initially demonstrated a positive vibrio cholera and negative C. difficile testing. Pathology has made an addendum that her stool PCR was actually all negative. Currently, the patient is doing well at the bedside, eating her lunch. Stable GI symptoms. No electrolyte abnormalities or renal impairment noted. Allergies Allergy/AdvReac Type Severity Reaction Status Date / Time doxycycline Allergy Mild Vomiting Verified 12/08/21 10:32 oxybutynin Allergy Unknown "WEIRD Verified 12/08/21 10:32 EFFECTS" Penicillins Allergy Unknown HIVES Verified 12/08/21 10:32 sertraline AdvReac Unknown "WEIRD Verified 12/08/21 10:32 EFFECTS" Home Medications Medication Instructions Recorded Confirmed Type biotin 2,500 mcg capsule 5 mg PO QAM 10/02/21 08/16/23 History cetirizine 10 mg tablet (Zyrtec) 10 mg PO QAM PRN allergy 10/02/21 08/16/23 History cholecalciferol (vitamin D3) 25 25 mcg PO QAM 10/02/21 08/16/23 History mcg (1,000 unit) capsule ashwagandha root extract 300 mg 300 mg PO QAM 10/06/21 08/16/23 History capsule collagen,hydrolysate 500 mg-biotin 1 cap PO QAM 11/19/21 08/16/23 History 800 mcg-ascorbic acid 50 mg capsule fidaxomicin 200 mg tablet (Dificid) 200 mg PO BID 10 days #20 tabs 08/16/23 Rx cyanocobalamin (vitamin B-12) 1,000 mcg PO DAILY #30 caps 08/17/23 Rx 1,000 mcg capsule Patient History Medical History (Updated 08/17/23 @ 13:44 by Lizeth Coleman MD) B12 deficiency anemia Iron deficiency anemia Cholelithiasis Surgical History Hx laparoscopic cholecystectomy (11/24/21) Laparoscopic Cholecystectomy(Not Applicable) - Guicho Gomes DO, FACS H/O knee surgery RIGHT S/P endometrial ablation H/O wisdom tooth extraction H/O tubal ligation Family History Grandfather (Maternal) Colorectal cancer Myocardial infarction Father Myocardial infarction Mother Hypertension Denies family history of Ovarian cancer Prostate cancer Breast cancer Social History Smoking Status: Never smoker Tobacco Type: Cigarettes Second Hand Exposure: No; Do You Dip or Chew Tobacco: No; Hx Alcohol Use: No Hx Substance Use: No Preferred Language: Swedish Communication Ability: Effective Firestop/Containment Worker Required: No Beliefs That Will Affect Care: None marital status: Current Living Situation: Alone and Family Current Living Situation Comment: lives with son current occupational status: employed 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 How many Children do You have: 2 Other Information That Helps Us Care for You: No Feels Safe at Home: Yes Safety Concerns: Feels Safe At This Time Childhood Exposure to Second-Hand Smoke: Yes Diet: regular caffeine: Yes during the past year weight has: remained stable Dental Care, Regularly: Yes Seatbelt Use: always Sunscreen Use: Yes Assistive Devices: None Review of Systems Review of Systems: All systems reviewed & are unremarkable except as noted in HPI & below Physical Exam Constitutional: WD/WN, vitals as above Eyes: EOM intact bilaterally Neck: normal appearance Respiratory: normal respiratory effort, lungs clear to auscultation Cardiovascular: Rate/Rhythm: regular rate and regular rhythm Heart Sounds: no gallop and no murmur Gastrointestinal (Abdomen): normal bowel sounds, soft, nontender, no hepatosplenomegaly Inspection/Auscultation: abdomen not distended Musculoskeletal: Extremities: no cyanosis no lower extremity edema Skin: no rashes, warm and dry Neurologic: moves all extremities Psychiatric: A+Ox3, euthymic affect Results & Data Vital Signs (Past 12 Hours) Vital Signs Temp Pulse Resp BP Pulse Ox O2 Del Method 08/17/23 07:24 36.6 C 78 16 117/81 99 Room Air PG Care Time/CCT Total # of Minutes Spent Total Time Spent with Patient: Total time spent is greater than 50% in coordination of care (as documented) at patient's floor/unit and/or counseling patient: Coding Level of Care Code 39517 INT INP/OBS CARE 3/75MIN Diagnoses Chronic blood loss anemia D50.0 Diarrhea R19.7 Hematochezia K92.1
[2023-08-17] MEDS: CYANOCOBALAMIN 1000 MCG/ML VIAL IM SCH (13:18)
--- NOTE | 2023-08-17 13:43 | Discharge Summary ---
Discharge Summary Date of Service August 17, 2023 Notes For Next Care Provider Needs colonoscopy and EGD Medication Changes From Visit Added Dificid 200mg po bid x 10 days Admission HPI Per Admitting Provider eKlli Jorge is a 52 year old female who presents as a direct admission to [facility] due to bloody diarrhea. This has been going on intermittently for the last 8-9 months, getting much worse in May with intermittent blood in watery stool. C. difficile test was collected on with culture with reflex toxin PCR both positive. She was given a course of vancomycin. Calprotectin was noted to be significantly elevated at the same time at 2510 mcg/g. Vancomycin 10 days from felt 100x better. She never came off it. Called her PCP on day 8 because symptoms getting worse and she was sent another course of vancomycin which she is currently on. Last took this morning. Each day getting worse and regressing. Going twice every hour. Still bloody. Taking iron supplement since labs as outpatient came back with iron deficient anemia. Hemoglobin 10.5 [07/11]. She denies any dizziness, lightheadedness or shortness of breath. Principal Dx & Hospital Course #1 = Principal Diagnosis (1) C. difficile colitis: Tested positive as an outpt. Vancomycin initially helped but then diarrhea worsened again Repeat testing here is neg for C. diff but given likely underlying IBD, immunocompromised, will treat with Dificid 200mg po bid x 10 days-obtained prior auth and cost will be $50 fortunately her electrolytes and renal function are normal, no leukocytosis, no fevers stable for dc to home (2) Diarrhea: With bloody stools x 1 year, then severe diarrhea x 3 months along with bloody stools, with +C. diff No weight loss, ESR elevated at 38, CRP normal outpt calprotectin elevated Suspect IBD outpt colonoscopy and EGD have been delayed due to poor prep and then due to C. diff recommend colonoscopy as soon as able to with GI after discharge continue to stay hydrated no steroids for now as would mask diagnosis on scopes as per my d/w GI (3) Hematochezia: as above, suspect IBD (4) Iron deficiency anemia: secondary to chronic blood loss from GI bleeding, hgb 9 ferritin 4, transferrin sat 4% Gave 1 dose IV Venofer 300mg while here f/u with PCP continue po Fe tabs if can tolerate follow CBC as outpt (5) B12 deficiency anemia: B12 low-normal at 253 gave B12 1000 mcg IM x 1 here and can continue on po B12 1000mcg daily follow as outpt Plan VTE Prophylaxis - contraindicated with hematochezia Disposition - discharge to home Discharge Exam Constitutional WD/WN, vitals as above ENMT external ear and nose normal, oropharynx normal Neck trachea midline, no thyromegaly Respiratory normal respiratory effort, lungs clear to auscultation Cardiovascular RRR, no murmur, no edema Chest (Breasts) Chest: normal inspection of chest Gastrointestinal (Abdomen) normal bowel sounds, soft, nontender, no hepatosplenomegaly (except mild ttp mid abdomen, no guarding) Musculoskeletal Extremities: extremities normal to inspection; no cyanosis and no clubbing Skin no rashes, warm and dry Neurologic moves all extremities and awake; no focal motor deficits Psychiatric A+Ox3, euthymic affect Lymphatic no lymphedema Updated Medication List Medication Instructions Recorded Confirmed Type biotin 2,500 mcg capsule 5 mg PO QAM 10/02/21 08/16/23 History cetirizine 10 mg tablet (Zyrtec) 10 mg PO QAM PRN allergy 10/02/21 08/16/23 Hi story cholecalciferol (vitamin D3) 25 25 mcg PO QAM 10/02/21 08/16/23 History mcg (1,000 unit) capsule ashwagandha root extract 300 mg 300 mg PO QAM 10/06/21 08/16/23 History capsule collagen,hydrolysate 500 mg-biotin 1 cap PO QAM 11/19/21 08/16/23 History 800 mcg-ascorbic acid 50 mg capsule fidaxomicin 200 mg tablet (Dificid) 200 mg PO BID 10 days #20 tabs 08/16/23 Rx cyanocobalamin (vitamin B-12) 1,000 mcg PO DAILY #30 caps 08/17/23 Rx 1,000 mcg capsule Hospital Stay Data Consultations 08/17/23 10:27 Consult Gastroenterology Routine Pending Results Patient Have Any Pending Studies at Discharge: No Discharge Instructions Given to Patient (Per Discharging Provider) Please take the Dificid twice a day for 10 days for your C. diff colitis. You likely have inflammatory bowel disease but need a colonoscopy to help make the diagnosis. Continue to stay well hydrated as you have been and follow up with GI. Total Time Total Time Spent Total Time Spent (In Minutes): 40 min Total Time Includes: Examination of the Patient, Discharge Planning, Medication Reconciliation and Communication With Other Providers (GI) Coding Level of Care Code 57897 INP/OBS DISCH >30 MIN Diagnoses C. difficile colitis A04.72 Diarrhea R19.7 Hematochezia K92.1 Iron deficiency anemia D50.9 B12 deficiency anemia D51.9
[2023-08-17] MEDS: IRON SUCROSE 300 MG in SODIUM CHLORIDE 0.9% 250 ML IV ONE (14:38)
[2023-08-18] MEDS ORDERED: CYANOCOBALAMIN (B-12) 500 MCG TABLET PO SCH (09:00)
== END 2023-08-17 17:32 | disposition home or self-care (01) | DRG 372 ==
LOC: 3W 12:20 → INTOOBSV 12:20

== ENCOUNTER 2024-01-31 09:43 | Inpatient (IN) ==
--- NOTE | 2024-01-31 10:13 | Emergency Department Note ---
ED Provider Note History of Present Illness Chief Complaint: Abdominal Pain Stated Complaint: abdominal pain Time Seen by Provider: 01/31/24 09:46 Source: patient Mode of arrival: EMS Limitations: no limitations This patient is a 53-year-old female who presents to the emergency department for evaluation of lower abdominal pain. Patient reports that she is currently undergoing chemotherapy for colorectal cancer. She states her last chemo infusion was 5 days ago. She states that shortly after receiving her infusion, she began developing a colicky lower abdominal pain. She had similar symptoms last time she had an infusion of chemo. However symptoms are more severe today. She states the pain comes and goes. She has tried Tylenol and Gas-X without relief. She denies any urinary symptoms but states that her urine is orange in color here. She states that her bowel movements are loose but that is normal for her. She reports that she only has vomiting secondary to the pain and denies having much nausea. She does report some significant fatigue with the chemotherapy. She most recently had a CT scan a few weeks ago which her oncologist said was normal. Home Medications Medication Instructions Recorded Confirmed Type cetirizine 10 mg tablet (Zyrtec) 10 mg PO QAM PRN allergy 10/02/21 01/31/24 History cholecalciferol (vitamin D3) 25 25 mcg PO QAM 10/02/21 01/31/24 History mcg (1,000 unit) capsule ashwagandha root extract 300 mg 300 mg PO QAM 10/06/21 01/31/24 History capsule collagen,hydrolysate 500 mg-biotin 1 cap PO QAM 11/19/21 01/31/24 History 800 mcg-ascorbic acid 50 mg capsule (Collagen 1500 Plus C) biotin 10,000 mcg capsule 10,000 mcg PO DAILY 08/29/23 01/31/24 History cyanocobalamin (vitamin B-12) 3,000 mcg PO DAILY 12/26/23 01/31/24 History 1,000 mcg capsule vitamins no.144-folic 2 tab PO DAILY 01/31/24 01/31/24 History acid 400 mcg chewable tablet () Allergies Allergy/AdvReac Type Severity Reaction Status Date / Time mushroom Allergy Severe Vomiting Unverified 01/31/24 13:37 doxycycline Allergy Mild Vomiting Verified 01/31/24 13:37 oxybutynin Allergy Unknown "WEIRD Verified 01/31/24 13:37 EFFECTS" Penicillins Allergy Unknown HIVES Verified 01/31/24 13:37 sertraline AdvReac Unknown "WEIRD Verified 01/31/24 13:37 EFFECTS" Past Med/Surg History Problem List (Updated 01/31/24 @ 15:06 by David Torres PA-C) Malnutrition History of Clostridioides difficile colitis Colitis Adenocarcinoma of rectum, 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 difficile colitis Hx laparoscopic cholecystectomy (11/24/21) Laparoscopic Cholecystectomy(Not Applicable) - Guicho Gomes DO, FACS Encounter for pre-operative examination Cholelithiasis PMDD (premenstrual dysphoric disorder) Knee MCL sprain Depression Anxiety Medical History Hx of Clostridium difficile infection ~08/2023, "all cleared up now, no recent issues." Hx of migraines Anxiety and depression Iron deficiency anemia hx, iron "has been good since bleeding stopped" Rectal cancer dx 08/2023; stage 3; xrt and chemo finished 12/16/23 (taken for 5 weeks) Surgical History Port-A-Cath in place (01/04/24) Insertion Access Port Left Internal Jugular with Fluroscopy(Left) - Guicho Gomes DO, FACS History of esophagogastroduodenoscopy (EGD) H/O colonoscopy History of laparoscopic cholecystectomy H/O knee surgery right S/P endometrial ablation 2007 H/O wisdom tooth extraction H/O tubal ligation Family History Grandfather (Maternal) Colorectal cancer Myocardial infarction Father Myocardial infarction Mother Hypertension Diabetes Brother Hypertension Grandmother (Maternal) Brain cancer Denies family history of Ovarian cancer Prostate cancer Breast cancer Social History Smoking Status: Never smoker Tobacco Type: Cigarettes Second Hand Exposure: Yes (hx); Do You Dip or Chew Tobacco: No; Hx Alcohol Use: No Hx Substance Use: No Preferred Language: [place]i Communication Ability: Effective Visual Impairment: No Limitations Hearing Ability: Normal Garment Presser Required: No Beliefs That Will Affect Care: None marital status: Current Living Situation: Family Current Living Situation Comment: lives with son; current occupational status: employed 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 [employer]; How many Children do You have: 2 Other Information That Helps Us Care for You: No Feels Safe at Home: Yes Childhood Exposure to Second-Hand Smoke: Yes Diet: regular caffeine: Yes during the past year weight has: remained stable Dental Care, Regularly: Yes Seatbelt Use: always Sunscreen Use: Yes Assistive Devices: None and Glasses Assistive Devices Comment: reading glasses Physical Exam Vital Signs Vital Signs - 24 hr 01/31/24 09:50 01/31/24 10:03 01/31/24 10:34 Temperature 36.6 C Temperature Source Oral Pulse Rate 108 H 106 H 83 Pulse Rate from SpO2 Sensor Pulse Rhythm Regular Respiratory Rate 18 16 Blood Pressure 138/104 H Blood Pressure Mean 115 Pulse Oximetry 97 99 Oxygen Delivery Method Room Air Room Air Sepsis Recent Fever Within 48 Hours No Sepsis New/Unexplained Change in Mental Status N/A Sepsis Action Taken by Nursing No Action Required 01/31/24 11:00 01/31/24 11:30 01/31/24 12:00 Temperature Temperature Source Pulse Rate 82 79 Pulse Rate from SpO2 Sensor 82 79 82 Pulse Rhythm Respiratory Rate 16 19 16 Blood Pressure 131/83 144/90 H 129/84 Blood Pressure Mean 99 118 108 Pulse Oximetry 97 99 98 Oxygen Delivery Method Sepsis Recent Fever Within 48 Hours Sepsis New/Unexplained Change in Mental Status Sepsis Action Taken by Nursing 01/31/24 12:30 01/31/24 13:15 01/31/24 13:30 Temperature Temperature Source Pulse Rate Pulse Rate from SpO2 Sensor 87 84 93 H Pulse Rhythm Respiratory Rate Blood Pressure 142/90 H 146/90 H 126/88 Blood Pressure Mean 111 117 110 Pulse Oximetry 99 99 98 Oxygen Delivery Method Sepsis Recent Fever Within 48 Hours Sepsis New/Unexplained Change in Mental Status Sepsis Action Taken by Nursing 01/31/24 14:30 Temperature Temperature Source Pulse Rate Pulse Rate from SpO2 Sensor 97 H Pulse Rhythm Respiratory Rate Blood Pressure 141/81 H Blood Pressure Mean 103 Pulse Oximetry 98 Oxygen Delivery Method Sepsis Recent Fever Within 48 Hours Sepsis New/Unexplained Change in Mental Status Sepsis Action Taken by Nursing VITALS: Vitals are noted on the nurse's note and reviewed by myself. GENERAL: This is a 53-year-old female, sitting up right in bed, uncomfortable appearing. SKIN: The skin was without rashes. EYES: Pupils equal round and reactive to light and accommodation. MOUTH: Mucous membranes moist. Tonsils are not enlarged. Pharynx without erythema or exudate. NECK: Supple without nuchal rigidity. No lymphadenopathy. HEART: Regular rate and rhythm without murmurs gallops or rubs. LUNGS: Clear to auscultation bilaterally without wheezes, rales or rhonchi. No retractions or accessory muscle use. ABDOMEN: Positive bowel sounds x 4. Soft, moderate tenderness across the lower abdomen. No guarding or rebound tenderness. NEURO: Patient was alert and oriented to person place and time. Course Administered Medications Lactated Ringer's (Lr) 1,000 mls @ 100 mls/hr IV .Q10H MIGUEL ANGEL Stop: 02/01/24 20:09 Last Admin: 01/31/24 14:03 Dose: 80 mls/hr Documented By: JOHNNA Morphine Sulfate (Morphine Sulfate 2 Mg/Ml Carp) 2 mg IV Q3H PRN PRN Reason: Moderate Pain (4,5,6) on NRS Stop: 02/14/24 16:32 Last Admin: 01/31/24 17:05 Dose: 2 mg Documented By: ESTHER Discontinued Medications Ioversol (Optiray 320 100ml) 95 ml IV ONCE ONE Stop: 01/31/24 12:42 Last Admin: 01/31/24 12:41 Dose: 95 ml Documented By: SHANAE Morphine Sulfate (Morphine Sulfate 10 Mg/Ml Carp/Vial) 6 mg IV NOW STA Stop: 01/31/24 10:06 Last Admin: 01/31/24 10:25 Dose: 6 mg Documented By: EMMIE Morphine Sulfate (Morphine Sulfate 4 Mg/Ml 1 Ml Carp\\Vial) 4 mg IV NOW STA Stop: 01/31/24 12:26 Last Admin: 01/31/24 12:30 Dose: 4 mg Documented By: YOSELIN Ondansetron HCl (Ondansetron Inj 2 Mg/Ml 2 Ml Vial) 4 mg IV NOW STA Stop: 01/31/24 10:06 Last Admin: 01/31/24 10:25 Dose: 4 mg Documented By: EMMIE Medical Decision Making Differential Diagnosis Appendicitis, ovarian cyst, ovarian torsion, ectopic , TOA, PID, infections, diverticulitis, UTI, obstruction, mesenteric ischemia, aortic pathology, inflammatory bowel disease, renal colic, PUD, pancreatitis, biliary pathology, hernia, volvulus, constipation, as well as other pathologies. Laboratory Data Attestation: I reviewed the patient's lab results. 01/31/24 10:30 01/31/24 10:30 Lab Results 01/31/24 Range/Units 10:30 WBC 3.32 L (4.8-10.8) K/ul RBC 4.06 L (4.20-5.40) M/uL Hgb 13.2 (12.0-16.0) g/dl Hct 36.3 L (37.0-47.0) % MCV 89.4 (80.0-100.0) fL MCH 32.5 (25.0-34.0) pg MCHC 36.4 H (32.0-36.0) g/dL RDW Std Deviation 45.6 (36.4-46.3) fL RDW Coeff of Robin 14.0 (11.5-14.5) % Plt Count 194 (130-400) K/uL MPV 8.9 L (9.4-12.4) fL Immature Gran % (Auto) 1.8 % Neut % (Auto) 84.7 % Lymph % (Auto) 4.5 % [place] % (Auto) 7.2 % Eos % (Auto) 1.2 % Baso % (Auto) 0.6 % Neut # (Auto) 2.81 (1.40-6.50) K/uL Lymph # (Auto) 0.15 L (1.20-3.40) K/uL [place] # (Auto) 0.24 (0.11-0.59) K/uL Eos # (Auto) 0.04 (0.00-0.50) K/uL Baso # (Auto) 0.02 (0.00-0.20) K/uL Immature Gran # (Auto) 0.06 (0.01-0.20) K/uL Sodium 138 (136-145) mmol/L Potassium 4.1 (3.5-5.1) mmol/L Chloride 103 (98-107) mmol/L Carbon Dioxide 26 (21-32) mmol/L Anion Gap 9 (3-11) BUN 10 (6-23) mg/dl Creatinine 0.56 L (0.6-1.2) mg/dl Est Cr Clr Drug Dosing 107.9 ml/min Est GFR ( Amer) 125.1 ml/min Est GFR (Non-Af Amer) 108.0 ml/min BUN/Creatinine Ratio 17.9 (10-20) Glucose 140 H (70-99(Fasting)) mg/dl Calcium 9.2 (8.6-10.3) mg/dl Total Bilirubin 0.9 (0.2-1.0) mg/dl AST 26 (13-39) U/L ALT 26 (7-52) U/L Alkaline Phosphatase 112 H (34-104) U/L Total Protein 7.3 (6.0-8.3) gm/dl Albumin 4.4 (3.4-5.0) gm/dl Globulin 2.9 (2.5-4.0) gm/dl Albumin/Globulin Ratio 1.5 (0.9-2) Lipase 15 (11-82) U/L Urine Color Dark Yellow Urine Appearance Clear (Clear) Urine pH 5.5 (4.5-7.5) Ur Specific [place] 1.023 (1.000-1.030) Urine Protein 1+ H (Negative) Urine Glucose (UA) Negative (Negative) Urine Ketones 1+ H (Negative) Urine Blood Negative (Negative) Urine Nitrite Negative (Negative) Urine Bilirubin 1+ H (Negative) Urine Urobilinogen Negative (Negative) Ur Leukocyte Esterase 1+ H (Negative) Urine WBC (Auto) 0-5 (0-5) /hpf Urine RBC (Auto) 11-20 H (0-2) /hpf U Hyaline Cast (Auto) 0-2 (0-2) /lpf U Epithel Cells (Auto) 0-2 (0-2) /hpf Urine Bacteria (Auto) None Seen (None Seen) Calcium Oxalate Crystal Present A (None Prsent) Imaging Data Attestation: I personally reviewed and interpreted this imaging study as follows: Radiologist's Impression: Abdomen/Pelvis CT 01/31/24 10:05 CT abd pelvis IV con only CLINICAL HISTORY: lower abdominal pain TECHNIQUE: Helical axial images of the abdomen and pelvis were obtained and displayed. Automated dose lowering techniques and/or adjustment according to patient size were utilized for this exam. This exam was performed with intravenous contrast. CT DOSE: 855.57 mGy.cm COMPARISON: Comparison is made to CT abdomen pelvis 01/10/2024 FINDINGS: Lower chest: No acute abnormality. Liver: Unremarkable. No focal lesions are seen. Gallbladder and biliary tree: Patient is status post cholecystectomy. Physiologic prominence of the biliary ducts is noted. Pancreas: Unremarkable, no focal lesions. Spleen: Unremarkable. Adrenals: Unremarkable. Kidneys and ureters: Bilateral parapelvic cysts are seen. Bladder: Limited evaluation due to underdistention. Reproductive organs: Unremarkable. Bowel: Wall thickening is seen in the sigmoid colon and rectum. The appendix is normal. Lymph nodes Retroperitoneal: Unremarkable. Pelvic: Unremarkable. Mesenteric: Unremarkable. Peritoneum: Fat stranding is seen about the sigmoid colon with a small amount of pelvic free fluid. Vessels: Unremarkable. Abdominal wall: Unremarkable. Bones: Unremarkable. IMPRESSION: 1. Thickening of the sigmoid colon and rectum with surrounding fat stranding and reactive pelvic fluid significantly increased from prior exam. Findings are concerning for proctitis/colitis which may be infectious or inflammatory in origin, superimposed upon previously noted post radiation changes. 2. No evidence of distant metastatic disease. Electronically signed by: Tripp Dyer M.D. 01/31/2024 1:04 PM MDM Narrative This patient is a 53-year-old female who presents to the emergency department for evaluation of lower abdominal pain. Patient is currently undergoing treatment for colorectal cancer and receiving chemotherapy. She has been having colic the lower abdominal pain. The pain has been severe and she has not been able to eat much due to this. Her labs are overall unremarkable. CT scan was performed and does show evidence of proctitis/colitis, source unclear. Patient unable to provide a stool sample. She did require 2 doses of morphine for her pain. I discussed the case with Dr. Cook who did not feel that this would be due to the patient's chemotherapy. Patient will be admitted for further workup. [facility] Discharge Plan Visit Data Chief Complaint: Abdominal Pain Stated Complaint: abdominal pain ED Provider: Alonso Escalona ED Midlevel Provider: Kelley Rodriges Patient Disposition: Admitted As Inpatient Discharge Instructions Interventions: ED Discharge Assessment Last Done: 01/31/24 15:59
[2024-01-31] MEDS: MoRPHine SULFATE 10 MG/ML CARP/VIAL IV STA (10:25)
[2024-01-31] MEDS: ONDANSETRON INJ 2 MG/ML 2 ML VIAL IV STA (10:25)
[2024-01-31 10:46] LABS: Basophils # (auto) 0.02 K/uL (0.00-0.20); Basophils % (auto) 0.6 %; Eosinophils # (auto) 0.04 K/uL (0.00-0.50); Eosinophils % (auto) 1.2 %; Hematocrit (blood only) 36.3 % (37.0-47.0); Hemoglobin 13.2 g/dl (12.0-16.0); Immature Granulocytes # (auto) 0.06 K/uL (0.01-0.20); Immature Granulocytes % (auto) 1.8 %; Lymphocytes # (auto) 0.15 K/uL (1.20-3.40); Lymphocytes % (auto) 4.5 %; Mean Corpuscular Hemoglobin 32.5 pg (25.0-34.0); Mean Corpuscular Hgb Conc 36.4 g/dL (32.0-36.0); Mean Corpuscular Volume 89.4 fL (80.0-100.0); Mean Platelet Volume 8.9 fL (9.4-12.4); Monocytes # (auto) 0.24 K/uL (0.11-0.59); Monocytes % (auto) 7.2 %; Neutrophils # (auto) 2.81 K/uL (1.40-6.50); Neutrophils % (auto) 84.7 %; Platelet Count 194 K/uL (130-400); RDW Standard Deviation 45.6 fL (36.4-46.3); Red Blood Count 4.06 M/uL (4.20-5.40); White Blood Count 3.32 K/ul (4.8-10.8)
[2024-01-31 11:00] LABS: Appearance Urine Clear (Clear); Bacteria Urine Automated None Seen (None Seen); Bilirubin Urine 1+ (Negative); Blood Urine Negative (Negative); Calcium Oxalate Crystals Urine Present (None Prsent); Cast Urine Automated 0-2 /lpf (0-2); Color Urine Dark Yellow; Epithelial Cell Urine Auto 0-2 /hpf (0-2); Glucose Urine UA Negative (Negative); Ketones Urine 1+ (Negative); Leukocyte Esterase Urine 1+ (Negative); Nitrite Urine Negative (Negative); Protein Urine 1+ (Negative); Specific Gravity Urine 1.023 (1.000-1.030); Urobilinogen Urine Negative (Negative); WBC Urine Automated 0-5 /hpf (0-5); pH Urine 5.5 (4.5-7.5)
[2024-01-31 12:22] LABS: Albumin Level 4.4 gm/dl (3.4-5.0); Bilirubin,Total 0.9 mg/dl (0.2-1.0); Calcium 9.2 mg/dl (8.6-10.3); Potassium 4.1 mmol/L (3.5-5.1)
[2024-01-31 12:23] LABS: Albumin Globulin Ratio 1.5 (0.9-2); BUN Creatinine Ratio 17.9 (10-20); Creatinine Clr Calc Pharmacy 107.9 ml/min; Est GFR (African American) 125.1 ml/min; Globulin 2.9 gm/dl (2.5-4.0); Total Protein 7.3 gm/dl (6.0-8.3)
[2024-01-31] MEDS: MoRPHine SULFATE 4 MG/ML 1 ML CARP\\VIAL IV STA (12:30)
[2024-01-31] MEDS: OPTIRAY 320 100ml IV ONE (12:41)
--- NOTE | 2024-01-31 13:06 | CT Scan Report ---
CT abd pelvis IV con only CLINICAL HISTORY: lower abdominal pain TECHNIQUE: Helical axial images of the abdomen and pelvis were obtained and displayed. Automated dose lowering techniques and/or adjustment according to patient size were utilized for this exam. This e xam was performed with intravenous contrast. CT DOSE: 855.57 mGy.cm COMPARISON: Comparison is made to CT abdomen pelvis 01/10/2024 FINDINGS: Lower chest: No acute abnormality. Liver: Unremarkable. No focal lesions are seen. Gallbladder and biliary tree: Patient is status post cholecystectomy. Physiologic prominence of the b iliary ducts is noted. Pancreas: Unremarkable, no focal lesions. Spleen: Unremarkable. Adrenals: Unremarkable. Kidneys and ureters: Bilateral parapelvic cysts are seen. Bladder: Limited evaluation due to underdistention. Reproductive organs: Unremarkable. Bowel: Wall thickening is seen in the sigmoid colon and rectum. The appendix is normal. Lymph nodes Retroperitoneal: Unremarkable. Pelvic: Unremarkable. Mesenteric: Unremarkable. Peritoneum: Fat stranding is seen about the sigmoid colon with a small amount of pelvic free fluid. Vessels: Unremarkable. Abdominal wall: Unremarkable. Bones: Unremarkable. IMPRESSION: 1. Thickening of the sigmoid colon and rectum with surrounding fat stranding and reactive pelvic flu id significantly increased from prior exam. Findings are concerning for proctitis/colitis which may b e infectious or inflammatory in origin, superimposed upon previously noted post radiation changes. 2. No evidence of distant metastatic disease. Electronically signed by: Tripp Dyer M.D. 01/31/2024 1:04 PM
[2024-01-31] MEDS: LACTATED RINGER'S 1,000 ML IV SCH (14:03)
--- NOTE | 2024-01-31 14:19 | History & Physical Report ---
Date of Service January 31, 2024 Assessment & Plan (1) Colitis: Plan: Worsening low, transverse abdominal pain x 5 days Patient is currently undergoing chemo/radiation therapy for her colorectal cancer No leukocytosis; however, unclear in the setting of chemo A/P CT revealed thickening of the sigmoid colon and findings concerning for proctitis/colitis Gentle IVF maintenance with LR at 80mL/hr x 3 L IV Toradol as needed for pain inflammation (first-line) Additional pain control with acetaminophen and oxycodone as needed IV antiemetics as needed for nausea and vomiting Supportive care A.m. CBC, BMP, mag (2) History of Clostridioides difficile colitis: Plan: Patient does have a history of C. difficile colitis Reports this does not feel like prior C. difficile, but has been having loose stool ever since starting chemotherapy PCR stool/C. difficile ordered, pending (3) Malnutrition: Plan: Poor oral intake secondary to chemotherapy Patient reports she has not had a real meal since last Wednesday 01/24 Dietitianist consulted for nutritional assessment (4) Adenocarcinoma of rectum, stage 3: Plan: Follows with [facility]CP Plan Disposition: Admit to [facility] DNR/DNI Regular diet as tolerated VTE PPx: Lovenox 40 mg SQ q24h History of Present Illness Chief Complaint: Abdominal pain Primary Care Provider: Dian Duncan PA-C Kelli is a 53-year-old female with PMH of stage III adenocarcinoma of the rectum, B12 deficiency, iron deficiency, C. difficile colitis, PMDD, anxiety, and depression. She presented via EMS on 01/30 for low, transverse pelvic and groin pain. Patient is currently undergoing chemo/radiation therapy for her colorectal cancer; last infusion was 5 days ago on 01/25. She reports that she normally gets this pain whenever she has infusions. The pain is low and transverse bilaterally across her pelvic and groin region. She rates the pain 2/10 after receiving pain medicine in the ED; 10 out of 10 at worst. Patient has had intermittent, colicky pain since Tuesday, but it became intractable this morning. She tried taking 2 extra Tylenol this morning, which did help a little bit, but pain became intractable. She has also been taking Imodium for loose stool. Normally this pain last for about 30 minutes, but today it was intractable. No radiation to the abdomen, flanks, lower back, or down the legs. She characterizes it as a sharp, stabbing pain. Sitting over on the toilet and hunching over does alleviate the pain somewhat. She also reports that morphine did help in the ED. She has been having loose stools over the past week, with decreased amount. No dark tarry stool or blood in stool. She reports poor oral intake, and has not had a regular meal since last Tuesday. Yesterday she did tolerate some watermelon and grapes. She is also been trying to drink Ensure protein shakes, but they do not sit well in her stomach. No vomiting, but she is having intermittent nausea. Patient did not take her regular morning medications today; only recent changes that she was started on a vitamin on Tuesday to help with her side effects. She denies smoking, tobacco use, recent alcohol use. Patient does have a history of C. difficile colitis; diagnosed last spring, however she reports this current episode does not feel like her past episode of C. difficile. Patient is hypertensive at 146/90 at time of admission; vitals otherwise stable. ED Course: LR at 80mL/hr Morphine sulfate 6 mg IV Morphine sulfate 4 mg IV Zofran 4 mg IV ROS: Patient endorses pelvic/groin pain, cold intolerance, dizziness/lightheadedness (which patient attributes to poor oral intake), headache, loss of appetite, nausea, loose stool, dark urine this morning (note: Patient is unsure if there was blood, but reports she was told that she did not have blood in her UA), and ongoing neuropathy (which patient attributes to chemo). Patient denies fever, night-sweats, chest pain, pleuritic CP, cough, SOB, abdominal pain, vomiting, diarrhea, melena, blood in the stool, lower back pain, saddle anesthesia, or numbness/tingling in the legs. Allergies Allergy/AdvReac Type Severity Reaction Status Date / Time mushroom Allergy Severe Vomiting Unverified 01/31/24 13:37 doxycycline Allergy Mild Vomiting Verified 01/31/24 13:37 oxybutynin Allergy Unknown "WEIRD Verified 01/31/24 13:37 EFFECTS" Penicillins Allergy Unknown HIVES Verified 01/31/24 13:37 sertraline AdvReac Unknown "WEIRD Verified 01/31/24 13:37 EFFECTS" Home Medications Medication Instructions Recorded Confirmed Type cetirizine 10 mg tablet (Zyrtec) 10 mg PO QAM PRN allergy 10/02/21 01/31/24 History cholecalciferol (vitamin D3) 25 25 mcg PO QAM 10/02/21 01/31/24 History mcg (1,000 unit) capsule ellisdha root extract 300 mg 300 mg PO QAM 10/06/21 01/31/24 History capsule collagen,hydrolysate 500 mg-biotin 1 cap PO QAM 11/19/21 01/31/24 History 800 mcg-ascorbic acid 50 mg capsule (Collagen 1500 Plus C) biotin 10,000 mcg capsule 10,000 mcg PO DAILY 08/29/23 01/31/24 History cyanocobalamin (vitamin B-12) 3,000 mcg PO DAILY 12/26/23 01/31/24 History 1,000 mcg capsule vitamins no.144-folic 2 tab PO DAILY 01/31/24 01/31/24 History acid 400 mcg chewable tablet () Past Med/Surg History Problem List (Updated 01/31/24 @ 15:06 by David Torres PA-C) Malnutrition History of Clostridioides difficile colitis Colitis Adenocarcinoma of rectum, 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 difficile colitis Hx laparoscopic cholecystectomy (11/24/21) Laparoscopic Cholecystectomy(Not Applicable) - Guicho Gomes DO, FACS Encounter for pre-operative examination Cholelithiasis PMDD (premenstrual dysphoric disorder) Knee MCL sprain Depression Anxiety Medical History Hx of Clostridium difficile infection ~08/2023, "all cleared up now, no recent issues." Hx of migraines Anxiety and depression Iron deficiency anemia hx, iron "has been good since bleeding stopped" Rectal cancer dx 08/2023; stage 3; xrt and chemo finished 12/16/23 (taken for 5 weeks) Surgical History Port-A-Cath in place (01/04/24) Insertion Access Port Left Internal Jugular with Fluroscopy(Left) - Guicho Gomes DO, FACS History of esophagogastroduodenoscopy (EGD) H/O colonoscopy History of laparoscopic cholecystectomy H/O knee surgery right S/P endometrial ablation 2007 H/O wisdom tooth extraction H/O tubal ligation Family History Grandfather (Maternal) Colorectal cancer Myocardial infarction Father Myocardial infarction Mother Hypertension Diabetes Brother Hypertension Grandmother (Maternal) Brain cancer Denies family history of Ovarian cancer Prostate cancer Breast cancer Social History Smoking Status: Never smoker Tobacco Type: Cigarettes Second Hand Exposure: Yes (hx); Do You Dip or Chew Tobacco: No; Hx Alcohol Use: No Hx Substance Use: No Preferred Language: Comoran Communication Ability: Effective Visual Impairment: No Limitations Hearing Ability: Normal Boardinghouse Keeper Required: No Beliefs That Will Affect Care: None marital status: Current Living Situation: Family Current Living Situation Comment: lives with son; current occupational status: employed 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; How many Children do You have: 2 Other Information That Helps Us Care for You: No Feels Safe at Home: Yes Childhood Exposure to Second-Hand Smoke: Yes Diet: regular caffeine: Yes during the past year weight has: remained stable Dental Care, Regularly: Yes Seatbelt Use: always Sunscreen Use: Yes Assistive Devices: None and Glasses Assistive Devices Comment: reading glasses Review of Systems Review of Systems: See HPI above Physical Exam Physical Exam: General: no acute distress; non-toxic appearing; cooperative; SpO2 99% on RA HEENT: normocephalic, atraumatic; no scleral icterus; PERRLA; vision and hearing grossly intact Neck: supple; no lymphadenopathy; trachea midline Skin: warm, dry without signs of tenting; no cyanosis; no rashes, bruising, lesions, or erythema noted CV: chest wall NTP; port site on the left upper chest wall without signs of erythema, infection, or drainage; RRR; S1/S2 normal; no murmurs/rubs/gallops; pulses intact and symmetric at radial, DP, and PT Lungs: no acute respiratory distress; symmetrical chest wall expansion; clear breath sounds across all lung kunz w/o adventitious sounds; no wheezing ABD: Soft; abdomen is NTP, however suprapubic tenderness and mild pain to palpation; BS present; no rebound/guarding; no distention; no rashes or bruising on the abdomen or flanks MSK: no tics or fasciculations; no edema noted in the LEs b/l, nonerythematous Neuro: A&Ox3; normal mood and affect; fluent speech; no focal deficits; sensation grossly intact in the LEs b/l Results & Data Results & Data Vital Signs (Past 12 Hours) Vital Signs Temp Pulse Resp BP Pulse Ox O2 Del Method 01/31/24 13:15 146/90 H 99 01/31/24 12:30 142/90 H 99 01/31/24 12:00 16 129/84 98 01/31/24 11:30 79 19 144/90 H 99 01/31/24 11:00 82 16 131/83 97 01/31/24 10:34 83 16 99 Room Air 01/31/24 10:03 106 H 01/31/24 09:50 36.6 C 108 H 18 138/104 H 97 Room Air Laboratory Results Abnormal lab results 01/31/24 Range/Units 10:30 WBC 3.32 L (4.8-10.8) K/ul RBC 4.06 L (4.20-5.40) M/uL Hct 36.3 L (37.0-47.0) % MCHC 36.4 H (32.0-36.0) g/dL MPV 8.9 L (9.4-12.4) fL Lymph # (Auto) 0.15 L (1.20-3.40) K/uL Creatinine 0.56 L (0.6-1.2) mg/dl Glucose 140 H (70-99(Fasting)) mg/dl Alkaline Phosphatase 112 H (34-104) U/L Urine Protein 1+ H (Negative) Urine Ketones 1+ H (Negative) Urine Bilirubin 1+ H (Negative) Ur Leukocyte Esterase 1+ H (Negative) Urine RBC (Auto) 11-20 H (0-2) /hpf Calcium Oxalate Crystal Present A (None Prsent) Diagnostic Findings Abdomen/Pelvis CT 01/31/24 10:05 CT abd pelvis IV con only CLINICAL HISTORY: lower abdominal pain TECHNIQUE: Helical axial images of the abdomen and pelvis were obtained and displayed. Automated dose lowering techniques and/or adjustment according to patient size were utilized for this exam. This exam was performed with intravenous contrast. CT DOSE: 855.57 mGy.cm COMPARISON: Comparison is made to CT abdomen pelvis 01/10/2024 FINDINGS: Lower chest: No acute abnormality. Liver: Unremarkable. No focal lesions are seen. Gallbladder and biliary tree: Patient is status post cholecystectomy. Physiologic prominence of the biliary ducts is noted. Pancreas: Unremarkable, no focal lesions. Spleen: Unremarkable. Adrenals: Unremarkable. Kidneys and ureters: Bilateral parapelvic cysts are seen. Bladder: Limited evaluation due to underdistention. Reproductive organs: Unremarkable. Bowel: Wall thickening is seen in the sigmoid colon and rectum. The appendix is normal. Lymph nodes Retroperitoneal: Unremarkable. Pelvic: Unremarkable. Mesenteric: Unremarkable. Peritoneum: Fat stranding is seen about the sigmoid colon with a small amount of pelvic free fluid. Vessels: Unremarkable. Abdominal wall: Unremarkable. Bones: Unremarkable. IMPRESSION: 1. Thickening of the sigmoid colon and rectum with surrounding fat stranding and reactive pelvic fluid significantly increased from prior exam. Findings are concerning for proctitis/colitis which may be infectious or inflammatory in origin, superimposed upon previously noted post radiation changes. 2. No evidence of distant metastatic disease. Electronically signed by: Tripp Dyer M.D. 01/31/2024 1:04 PM Code Status & VTE Plan Code Status DNR/DNI VTE Prophylaxis Plan VTE Prophylaxis will be ordered: Yes Supervising Physician Co-Signing Physician Notes I personally saw and examined the patient. I independently reviewed the labs, EKG, imaging, problem list, medication list, past medical history and family history. I verified all doss points and agree with David Torres PA-C with the following exceptions and/or additions: 53 year old female with rectal cancer on chemotherapy presents to the ER with rectal pain O/E HS RRR, no murmurs, Chest CTAB, Abdo SNT A/P Colitis/proctitis - low suspicion of infection, no watery diarrhea to suggest c. diff. Stool and c. diff PCR pending. Acetaminophen 1g TID, Toradol 1st line, oxycodone 2nd line, morphine 3rd line PG Care Time/CCT Total # of Minutes Spent Total Time Spent with Patient: Total time spent is greater than 50% in coordination of care (as documented) at patient's floor/unit and/or counseling patient: Coding [place] [address] INT INP/OBS CARE MIN Patient Type Established Medical Decision Making High Complexity Diagnoses Colitis K52.9 History of Clostridioides difficile colitis Z86.19 Malnutrition E46 Adenocarcinoma of rectum, stage 3 C20
[2024-01-31 15:59] VITALS: RESP 18
[2024-01-31] MEDS ORDERED: MoRPHine SULFATE 4 MG/ML 1 ML CARP\\VIAL IV PRN (16:33)
[2024-01-31] MEDS ORDERED: ACETAMINOPHEN 325 MG TAB PO PRN (16:33)
[2024-01-31] MEDS ORDERED: ONDANSETRON INJ 2 MG/ML 2 ML VIAL IV PRN (16:33)
[2024-01-31] MEDS ORDERED: CETIRIZINE HCL 10 MG TABLET PO PRN (16:33)
[2024-01-31] MEDS ORDERED: MELATONIN 3 MG TAB PO PRN (16:33)
[2024-01-31] MEDS: MoRPHine SULFATE 2 MG/ML CARP IV PRN (17:05)
[2024-01-31] MEDS ORDERED: oxyCODONE HCL IR 5 MG TAB (IMMEDIATE RELEASE) PO PRN ×2 (17:31)
[2024-01-31 20:12] LABS: Adenovirus F 40/41 PCR Not Detected (NotDetected); Astrovirus PCR Not Detected (NotDetected); Campylobacter PCR Not Detected (NotDetected); Cryptosporidium PCR Not Detected (NotDetected); Cyclospora cayetanensis PCR Not Detected (NotDetected); Entamoeba histolytica PCR Not Detected (NotDetected); Enteroaggregative E.coli(EAEC) Not Detected (NotDetected); Enteropathogenic E.coli (EPEC) Not Detected (NotDetected); Enterotoxigenic E.coli (ETEC) Not Detected (NotDetected); Giardia lamblia PCR Not Detected (NotDetected); Norovirus GI/GII PCR Not Detected (NotDetected); Plesiomonas shigelloides PCR Not Detected (NotDetected); Rotavirus A PCR Not Detected (NotDetected); Salmonella PCR Not Detected (NotDetected); Sapovirus PCR Not Detected (NotDetected); Shiga-like Toxin E.coli (STEC) Not Detected (NotDetected); Shigella/Enteroinvasive E.coli Not Detected (NotDetected); Vibrio cholerae PCR Not Detected (NotDetected); Vibrio species PCR Not Detected (NotDetected); Yersinia enterocolitica PCR Not Detected (NotDetected)
[2024-01-31] MEDS: ENOXAPARIN INJ 40 MG/0.4 ML SYR SQ SCH (20:20)
[2024-01-31] MEDS: ACETAMINOPHEN 500 MG TAB PO SCH (21:09)
[2024-02-01] MEDS: KETOROLAC TROMETHAMINE 15 MG/ML VIAL IV PRN (01:30)
--- NOTE | 2024-02-01 07:34 | Hospitalist Progress Note ---
Date of Service February 01, 2024 Assessment & Plan (1) Colitis: Plan: Worsening low, transverse abdominal pain x 5 days Patient is currently undergoing chemo/radiation therapy for her colorectal cancer No leukocytosis; however, unclear in the setting of chemo A/P CT revealed thickening of the sigmoid colon and findings concerning for proctitis/colitis Gentle IVF maintenance with LR at 80mL/hr x 3 L IV Toradol as needed for pain inflammation (first-line) Additional pain control with acetaminophen and oxycodone as needed IV antiemetics as needed for nausea and vomiting Supportive care A.m. CBC, BMP, mag (2) History of Clostridioides difficile colitis: Plan: Patient does have a history of C. difficile colitis Reports this does not feel like prior C. difficile, but has been having loose stool ever since starting chemotherapy PCR stool/C. difficile ordered, pending (3) Malnutrition: Plan: Poor oral intake secondary to chemotherapy Patient reports she has not had a real meal since last Wednesday 01/24 Dietitianist consulted for nutritional assessment (4) Adenocarcinoma of rectum, stage 3: Plan: Follows with CCP Plan Disposition: Admit to [facility] DNR/DNI Regular diet as tolerated VTE PPx: Lovenox 40 mg SQ q24h Admission and Anticipated Discharge Date Admission Date: January 31, 2024 Results & Data Results & Data Vital Signs (Past 12 Hours) Vital Signs Temp Pulse Resp BP Pulse Ox O2 Del Method 01/31/24 21:35 36.7 C 93 H 18 129/82 96 Room Air
[2024-02-01 07:49] VITALS: BP 122/74; PULSE 72; TEMP 97.9; O2SAT 99
[2024-02-01 08:43] LABS: Basophils # (auto) 0.03 K/uL (0.00-0.20); Eosinophils % (auto) 10.1 %; Hematocrit (blood only) 32.8 % (37.0-47.0); Hemoglobin 11.4 g/dl (12.0-16.0); Immature Granulocytes # (auto) 0.01 K/uL (0.01-0.20); Immature Granulocytes % (auto) 0.3 %; Lymphocytes # (auto) 0.29 K/uL (1.20-3.40); Lymphocytes % (auto) 9.8 %; Mean Corpuscular Hemoglobin 31.8 pg (25.0-34.0); Mean Corpuscular Hgb Conc 34.8 g/dL (32.0-36.0); Mean Corpuscular Volume 91.6 fL (80.0-100.0); Monocytes # (auto) 0.29 K/uL (0.11-0.59); Monocytes % (auto) 9.8 %; Neutrophils # (auto) 2.04 K/uL (1.40-6.50); Platelet Count 175 K/uL (130-400); RDW Coefficient of Variation 14.3 % (11.5-14.5); RDW Standard Deviation 47.8 fL (36.4-46.3); Red Blood Count 3.58 M/uL (4.20-5.40); White Blood Count 2.96 K/ul (4.8-10.8)
[2024-02-01 08:45] LABS: BUN Creatinine Ratio 12.5 (10-20); Calcium 8.9 mg/dl (8.6-10.3); Creatinine Clr Calc Pharmacy 107.9 ml/min; Est GFR (African American) 125.1 ml/min; Potassium 3.7 mmol/L (3.5-5.1)
--- NOTE | 2024-02-01 10:58 | Gastrointestinal Consultation ---
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 difficile colitis, PMDD, anxiety, and depression aditted with abd pain, decreased oral intake. CT imaging showing thickening of the sigmoid colon and rectum with surrounding fat stranding and reactive pelvic fluid significantly increased from prior exam. Her stool studies including a c.diff c.diff gene are negative. Suspect the colitis is related to chemo/radiation therapy - she notes her radiation is completed as of November. This AM, she is feeling improved. No indication for endoscopic evaluation at present time. She is requesting dietary advancement, recommend dairy free diet. Recommend conservative management Anti-emetics PRN Analgesia PRN Recall GI as needed. Thank you for allowing us to participate in the care of this patient. Please call with any acute changes, questions or concerns. Please see addendum below with additional recommendation from my supervising physician. I spent a total of 60 minutes on the date of service in review of patient's record, and previously obtained information in person and appropriate medical visit, discussion and education of plan, with patient and/or caregiver, placing orders for tests/referral/procedures as medically necessary and documentation of pertinent clinical information in patient's medical records for their visit today. Supervising Physician Co-Signing Physician Notes Patient seen and examined. Case discussed with Antonia JURADO. Patient seems improved and CT shows significant stool burden. She may have an element of stercoral colitis. Rec: Agree with advancing diet and laxatives if needed. If clinically stable after food challenge OK from GI standpoint to discharge once cleared by medicine. IP GI Service will sign off. Please recall as needed. History of Present Illness Reason for Consultation: infectious vs radiation colitis Requesting Physician: Santos Attending Physician: Lukas Graham DO History of Present Illness 53 year old female with history of stage III adenocarcinoma of the rectum, B12 deficiency, iron deficiency, C. difficile colitis, PMDD, anxiety, and depression admitted with lower abdominal pain - GI was asked to evaluate. Pt was seen and evaluated, chart reviewed. Endorses a history of C.diff and anemia last spring which prompted a colonoscopy. Unfortunately this was reveled a rectal mass. She was started on chemo/radiation therapy and notes completion of radiation around November. Suggests since initiation of her chemotherapy she has had lower abd pain. Denies diarrhea but does report one loose stools intermittently. No report of black/bloody stools. Decreased oral intake without report of nausea/vomiting. No fever, chills, CP, SOB. Stool studies 01/31/24: negative c.diff gene, negative stool culture Colonoscopy 2023: A fungating, infiltrative and polypoid ulcerated partially obstructing large mass was found at 10 cm proximal to the anus. The mass was circumferential. Biopsies were taken. Pathology report reveals: Colon mass at 10 cm, biopsy: Fragments of ulcerated moderately differentiated adenocarcinoma. CTAP 2023: Thickening of the sigmoid colon and rectum with surrounding fat stranding and reactive pelvic fluid significantly increased from prior exam. Findings are concerning for proctitis/colitis which may be infectious or inflammatory in origin, superimposed upon previously noted post radiation changes. No evidence of distant metastatic disease. CTAP 2023: Redemonstration of the focal area of thickening at the rectosigmoid junction. This likely represents a combination of the patient's known rectal mass and post radiation change. There is a single subcentimeter perirectal lymph node which remains stable and favors local spread of tumor. No evidence for distant metastatic disease within the abdomen or pelvis. Allergies Allergy/AdvReac Type Severity Reaction Status Date / Time mushroom Allergy Severe Vomiting Unverified 01/31/24 13:37 doxycycline Allergy Mild Vomiting Verified 01/31/24 13:37 oxybutynin Allergy Unknown "WEIRD Verified 01/31/24 13:37 EFFECTS" Penicillins Allergy Unknown HIVES Verified 01/31/24 13:37 sertraline AdvReac Unknown "WEIRD Verified 01/31/24 13:37 EFFECTS" Home Medications Medication Instructions Recorded Confirmed Type cetirizine 10 mg tablet (Zyrtec) 10 mg PO QAM PRN allergy 10/02/21 01/31/24 History cholecalciferol (vitamin D3) 25 25 mcg PO QAM 10/02/21 01/31/24 History mcg (1,000 unit) capsule ashwagandha root extract 300 mg 300 mg PO QAM 10/06/21 01/31/24 History capsule collagen,hydrolysate 500 mg-biotin 1 cap PO QAM 11/19/21 01/31/24 History 800 mcg-ascorbic acid 50 mg capsule (Collagen 1500 Plus C) biotin 10,000 mcg capsule 10,000 mcg PO DAILY 08/29/23 01/31/24 History cyanocobalamin (vitamin B-12) 3,000 mcg PO DAILY 12/26/23 01/31/24 History 1,000 mcg capsule vitamins no.144-folic 2 tab PO DAILY 01/31/24 01/31/24 History acid 400 mcg chewable tablet () Patient History Medical History Hx of Clostridium difficile infection ~08/2023, "all cleared up now, no recent issues." Hx of migraines Anxiety and depression Iron deficiency anemia hx, iron "has been good since bleeding stopped" Rectal cancer dx 08/2023; stage 3; xrt and chemo finished 12/16/23 (taken for 5 weeks) Surgical History Port-A-Cath in place (01/04/24) Insertion Access Port Left Internal Jugular with Fluroscopy(Left) - Guicho Gomes, DO, FACS History of esophagogastroduodenoscopy (EGD) H/O colonoscopy History of laparoscopic cholecystectomy H/O knee surgery right S/P endometrial ablation 2007 H/O wisdom tooth extraction H/O tubal ligation Family History Grandfather (Maternal) Colorectal cancer Myocardial infarction Father Myocardial infarction Mother Hypertension Diabetes Brother Hypertension Grandmother (Maternal) Brain cancer Denies family history of Ovarian cancer Prostate cancer Breast cancer Social History Smoking Status: Never smoker Tobacco Type: Cigarettes Second Hand Exposure: Yes (hx); Do You Dip or Chew Tobacco: No; Hx Alcohol Use: No Hx Substance Use: No Preferred Language: Macedonian Communication Ability: Effective Visual Impairment: No Limitations Hearing Ability: Normal Engineering Specialist Required: No Beliefs That Will Affect Care: None marital status: Current Living Situation: Family Current Living Situation Comment: lives with son; current occupational status: employed 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; How many Children do You have: 2 Other Information That Helps Us Care for You: No Feels Safe at Home: Yes Childhood Exposure to Second-Hand Smoke: Yes Diet: regular caffeine: Yes during the past year weight has: remained stable Dental Care, Regularly: Yes Seatbelt Use: always Sunscreen Use: Yes Assistive Devices: None Assistive Devices Comment: reading glasses Review of Systems Review of Systems: All other findings negative except as noted in HPI. Physical Exam Constitutional: WD/WN, vitals as above Respiratory: normal respiratory effort, lungs clear to auscultation Cardiovascular: Rate/Rhythm: regular rate and regular rhythm Gastrointestinal (Abdomen): normal bowel sounds, soft, nontender, no hepatosplenomegaly Skin: no rashes, warm and dry Results & Data Vital Signs (Past 12 Hours) Vital Signs Temp Pulse Resp BP Pulse Ox O2 Del Method 02/01/24 07:48 36.6 C 72 18 122/74 99 Room Air Laboratory Results 02/01/24 01/31/24 01/31/24 Range/Units 07:29 Unknown 10:30 WBC 2.96 L (4.8-10.8) K/ul RBC 3.58 L (4.20-5.40) M/uL Hgb 11.4 L (12.0-16.0) g/dl Hct 32.8 L (37.0-47.0) % MCV 91.6 (80.0-100.0) fL MCH 31.8 (25.0-34.0) pg MCHC 34.8 (32.0-36.0) g/dL RDW Std Deviation 47.8 H (36.4-46.3) fL RDW Coeff of Robin 14.3 (11.5-14.5) % Plt Count 175 (130-400) K/uL MPV 9.0 L (9.4-12.4) fL Immature Gran % (Auto) 0.3 % Neut % (Auto) 69.0 % Lymph % (Auto) 9.8 % [place] % (Auto) 9.8 % Eos % (Auto) 10.1 % Baso % (Auto) 1.0 % Neut # (Auto) 2.04 (1.40-6.50) K/uL Lymph # (Auto) 0.29 L (1.20-3.40) K/uL [place] # (Auto) 0.29 (0.11-0.59) K/uL Eos # (Auto) 0.30 (0.00-0.50) K/uL Baso # (Auto) 0.03 (0.00-0.20) K/uL Immature Gran # (Auto) 0.01 (0.01-0.20) K/uL Sodium 140 138 (136-145) mmol/L Potassium 3.7 4.1 (3.5-5.1) mmol/L Chloride 104 103 (98-107) mmol/L Carbon Dioxide 29 26 (21-32) mmol/L Anion Gap 7 9 (3-11) BUN 7 10 (6-23) mg/dl Creatinine 0.56 L 0.56 L (0.6-1.2) mg/dl Est Cr Clr Drug Dosing 107.9 107.9 ml/min Est GFR ( Amer) 125.1 125.1 ml/min Est GFR (Non-Af Amer) 108.0 108.0 ml/min BUN/Creatinine Ratio 12.5 17.9 (10-20) Glucose 130 H 140 H (70-99(Fasting)) mg/dl Calcium 8.9 9.2 (8.6-10.3) mg/dl Total Bilirubin 0.9 (0.2-1.0) mg/dl AST 26 (13-39) U/L ALT 26 (7-52) U/L Alkaline Phosphatase 112 H (34-104) U/L Total Protein 7.3 (6.0-8.3) gm/dl Albumin 4.4 (3.4-5.0) gm/dl Globulin 2.9 (2.5-4.0) gm/dl Albumin/Globulin Ratio 1.5 (0.9-2) Lipase 15 (11-82) U/L Urine Color Dark Yellow Urine Appearance Clear (Clear) Urine pH 5.5 (4.5-7.5) Ur Specific [place] 1.023 (1.000-1.030) Urine Protein 1+ H (Negative) Urine Glucose (UA) Negative (Negative) Urine Ketones 1+ H (Negative) Urine Blood Negative (Negative) Urine Nitrite Negative (Negative) Urine Bilirubin 1+ H (Negative) Urine Urobilinogen Negative (Negative) Ur Leukocyte Esterase 1+ H (Negative) Urine WBC (Auto) 0-5 (0-5) /hpf Urine RBC (Auto) 11-20 H (0-2) /hpf U Hyaline Cast (Auto) 0-2 (0-2) /lpf U Epithel Cells (Auto) 0-2 (0-2) /hpf Urine Bacteria (Auto) None Seen (None Seen) Calcium Oxalate Crystal Present A (None Prsent) Stl C. cayetanensis PCR Not Detected (NotDetected) Stool Rotavirus A PCR Not Detected (NotDetected) Stl Adenov F 40/41 PCR Not Detected (NotDetected) Stool Astrovirus (PCR) Not Detected (NotDetected) Stool Campylobacter PCR Not Detected (NotDetected) Stl C. diff Tox B Gene Negative Cdiff Gene (Neg) Stool Cryptosporidium PCR Not Detected (NotDetected) Stl E.coli Shiga Tox PCR Not Detected (NotDetected) Stl Enterotoxigenic E PCR Not Detected (NotDetected) Stool EPEC (PCR) Not Detected (NotDetected) Stool EAEC (PCR) Not Detected (NotDetected) Stl E. histolytica PCR Not Detected (NotDetected) Stool Giardia Lamblia PCR Not Detected (NotDetected) Stool Salmonella PCR Not Detected (NotDetected) Stool Sapovirus (PCR) Not Detected (NotDetected) Stl P. shigelloides PCR Not Detected (NotDetected) Stl Shigella/EIEC PCR Not Detected (NotDetected) St Y.enterocolitica PCR Not Detected (NotDetected) Stool Vibrio (PCR) Not Detected (NotDetected) Stl Vibrio cholerae PCR Not Detected (NotDetected) Stl Norovirus GI/GII PCR Not Detected (NotDetected) PG Care Time/CCT Total # of Minutes Spent Total Time Spent with Patient: Total time spent is greater than 50% in coordination of care (as documented) at patient's floor/unit and/or counseling patient: Coding Level of Care Code 41968 IN/OBS CONSULT LVL 4,60M Diagnoses Colitis K52.9
[2024-02-01] MEDS: HEPARIN 100 UNIT/ML 5ML FLUSH FLUSH PRN (13:41)
--- NOTE | 2024-02-01 15:58 | Discharge Summary ---
Date of Service February 01, 2024 Admission HPI Per Admitting Provider Kelli is a 53-year-old female with PMH of stage III adenocarcinoma of the rectum, B12 deficiency, iron deficiency, C. difficile colitis, PMDD, anxiety, and depression. She presented via EMS on 01/30 for low, transverse pelvic and groin pain. Patient is currently undergoing chemo/radiation therapy for her colorectal cancer; last infusion was 5 days ago on 01/25. She reports that she normally gets this pain whenever she has infusions. The pain is low and transverse bilaterally across her pelvic and groin region. She rates the pain 2/10 after receiving pain medicine in the ED; 10 out of 10 at worst. Patient has had intermittent, colicky pain since Tuesday, but it became intractable this morning. She tried taking 2 extra Tylenol this morning, which did help a little bit, but pain became intractable. She has also been taking Imodium for loose stool. Normally this pain last for about 30 minutes, but today it was intractable. No radiation to the abdomen, flanks, lower back, or down the legs. She characterizes it as a sharp, stabbing pain. Sitting over on the toilet and hunching over does alleviate the pain somewhat. She also reports that morphine did help in the ED. She has been having loose stools over the past week, with decreased amount. No dark tarry stool or blood in stool. She reports poor oral intake, and has not had a regular meal since last Tuesday. Yesterday she did tolerate some watermelon and grapes. She is also been trying to drink Ensure protein shakes, but they do not sit well in her stomach. No vomiting, but she is having intermittent nausea. Patient did not take her regular morning medications today; only recent changes that she was started on a vitamin on Tuesday to help with her side effects. She denies smoking, tobacco use, recent alcohol use. Patient does have a history of C. difficile colitis; diagnosed last spring, however she reports this current episode does not feel like her past episode of C. difficile. Patient is hypertensive at 146/90 at time of admission; vitals otherwise stable. ED Course: LR at 80mL/hr Morphine sulfate 6 mg IV Morphine sulfate 4 mg IV Zofran 4 mg IV ROS: Patient endorses pelvic/groin pain, cold intolerance, dizziness/lightheadedness (which patient attributes to poor oral intake), headache, loss of appetite, nausea, loose stool, dark urine this morning (note: Patient is unsure if there was blood, but reports she was told that she did not have blood in her UA), and ongoing neuropathy (which patient attributes to chemo). Patient denies fever, night-sweats, chest pain, pleuritic CP, cough, SOB, abdominal pain, vomiting, diarrhea, melena, blood in the stool, lower back pain, saddle anesthesia, or numbness/tingling in the legs. Admission Exam Per Admitting Provider Physical Exam Physical Exam: General: no acute distress; non-toxic appearing; cooperative; SpO2 99% on RA HEENT: normocephalic, atraumatic; no scleral icterus; PERRLA; vision and hearing grossly intact Neck: supple; no lymphadenopathy; trachea midline Skin: warm, dry without signs of tenting; no cyanosis; no rashes, bruising, lesions, or erythema noted CV: chest wall NTP; port site on the left upper chest wall without signs of erythema, infection, or drainage; RRR; S1/S2 normal; no murmurs/rubs/gallops; pulses intact and symmetric at radial, DP, and PT Lungs: no acute respiratory distress; symmetrical chest wall expansion; clear breath sounds across all lung kunz w/o adventitious sounds; no wheezing ABD: Soft; abdomen is NTP, however suprapubic tenderness and mild pain to palpation; BS present; no rebound/guarding; no distention; no rashes or bruising on the abdomen or flanks MSK: no tics or fasciculations; no edema noted in the LEs b/l, nonerythematous Neuro: A&Ox3; normal mood and affect; fluent speech; no focal deficits; sensation grossly intact in the LEs b/l Principal Diagnosis overflow diarrhea Discharge Exam constitutional: A&Ox4, not in acute distress HEENT: anicteric sclerae, EOM intact Cardio: RRR, no murmurs Pulmonary: clear to auscultation b/l GI: normal to hyperactive bowel sounds; abdomen soft, nondistended, no guarding; mild tenderness to palpation epigastric, LUQ, and LLQ skin: no rashes, non-jaundiced Discharge Data Allergies Allergy/AdvReac Type Severity Reaction Status Date / Time mushroom Allergy Severe Vomiting Unverified 01/31/24 13:37 doxycycline Allergy Mild Vomiting Verified 01/31/24 13:37 oxybutynin Allergy Unknown "WEIRD Verified 01/31/24 13:37 EFFECTS" Penicillins Allergy Unknown HIVES Verified 01/31/24 13:37 sertraline AdvReac Unknown "WEIRD Verified 01/31/24 13:37 EFFECTS" Consultations 01/31/24 21:53 Consult Gastroenterology Routine Ordered Studies 01/31/24 10:05 CT abd pelvis IV con only Stat Hospital Course (1) Overflow diarrhea: 01/31/24: CT abdomen & pelvis showed significant amount of solid stool throughout colon, particularly transverse colon with mild distension - patient continuing to have nonbloody loose stool despite presence of solid stool within colon - plan for patient to continue regular diet as tolerated with GI recommendation minimal lactose and oncology recommendation of minimal red meat - recommended to take Miralax 17mg (one capful) TID on first day taking, adjust accordingly in subsequent days based on stool looseness/hardness - follow up closely with PCP and specialists (oncology and GI) (2) Colitis: Worsening low, transverse abdominal pain x 5 days Patient is currently undergoing chemo/radiation therapy for her colorectal cancer No leukocytosis; however, unclear in the setting of chemo A/P CT revealed thickening of the sigmoid colon and findings concerning for proctitis/colitis Gentle IVF maintenance with LR at 80mL/hr x 3 L IV Toradol as needed for pain inflammation (first-line) Additional pain control with acetaminophen and oxycodone as needed IV antiemetics as needed for nausea and vomiting Supportive care A.m. CBC, BMP, mag (3) History of Clostridioides difficile colitis: Patient does have a history of C. difficile colitis Reports this does not feel like prior C. difficile, but has been having loose stool ever since starting chemotherapy PCR stool/C. difficile ordered, negative for toxin gene (4) Malnutrition: Poor oral intake secondary to chemotherapy Patient reports she has not had a real meal since last Tuesday01/25/24 Dietitianist consulted for nutritional assessment (5) Adenocarcinoma of rectum, stage 3: Follows with CCP Total Time Total Time Spent Total Time Spent (In Minutes): <30 Discharge Plan Discharge Items Patient Disposition: Home - Self-Care Reason For Visit: COLITIS Discharge Diagnosis: overflow diarrhea Activity: Per Instructions section Non-emergency contact: Primary Care Provider and Oncologist Call non-emergency contact if: you have any medication questions and your symptoms worsen Follow-up/Referrals: Bayron Elizabeth DO [Resident] - 02/06/24 12:45 pm Diet: Regular and Lactose Intolerant Diet Comment: avoid lactose (per gastroenterology), avoid red meat (per oncology) Addtl Attending Provider Instructions: You were seen at [facility] for lower abdominal and groin pain with dizziness, nausea, and loose stool. It was discovered by CT abdomen/pelvis that in addition to some sigmoid/rectum inflammation and wall thickening which could be related to your radiation and chemotherapy, you have a significant amount of stool within your colon. Therefore you have a condition called overflow diarrhea, which means your loose stools are moving around the stool that hasn't been able to move forward as it should. We recommend that you start by taking 17mg (a capful) of Miralax 3 times a day in order to start loosening up the stool that is stuck. This may be increased or decreased the next day depending on how much or little stool you are able to pass. Stress management: try walking daily as tolerated as well as meditating 20+ min per day, as well as any other activities in which you could be both mentally and physically stimulated/occupied. Lastly, follow GI and oncology recommendations - low lactose (GI) and avoid red meat (oncology) and follow up closely with PCP and specialist appointments. Pending Studies at Discharge: No Stand-Alone Forms: [facility] Medications and DC Order Prescriptions: Continued cholecalciferol (vitamin D3) 25 mcg (1,000 unit) capsule 25 mcg PO QAM cetirizine [Zyrtec] 10 mg tablet 10 mg PO QAM PRN (Reason: allergy) ashwagandha root extract 300 mg capsule 300 mg PO QAM Collagen 1500 Plus C 500 mg-800 mcg- 50 mg Capsule 1 cap PO QAM Patient Comments: powder cyanocobalamin (vitamin B-12) 1,000 mcg capsule 3,000 mcg PO DAILY 400 mcg Tablet,Chewable 2 tab PO DAILY biotin 10,000 mcg Capsule 10,000 mcg PO DAILY Discharge Orders: Discharge Order (Routine); Ordered 02/01/24 Ordered By: Kaiden العلي/Other Patient Handouts: Low-Fiber Diet, Colorectal Cancer, C. Diff Prevent Infection, Cancer Foods To Manage Diarrhea Admission Data Admit Date/Time: 01/31/24 14:49 Attending Provider: Lukas Graham Admit Provider: Lowell Gomez Primary Care Provider: Dian Duncan Other Providers: Tc Khoury Other Interventions: Discharge Summary Assessment (RN) Last Done: 02/01/24 13:57 Supervising Physician Co-Signing Physician Notes I personally examined the patient and verified all doss points of history and exam, discussed case, and agree with decision making with Dr Trejo Feeling better. Extensive discussion on bowel habitswas a little bit difficult for her to discern given that she had C. difficile, followed by colonoscopy, followed by rectal cancerand initiation of chemotherapy and radiation. At the same time, she does note having fairly irregular bowel habits with days of softer stoolsand there is typically 2-3 bowel movements a day, and days of more normal stools where there is only about 1 bowel movement a day. She notes intermittently having abdominal pain and cramping like lower abdominal pain like she felt prior to admissionoften feeling like she has to have a bowel movement and nothing will come out. She notes this is predominantly being exacerbated/most predictably exacerbated by movement. Vitals noted, in general she is awake and alert pleasant no distress. HEENT normocephalic atraumatic mucous membranes moist. Breathing unlabored no accessory muscle use good effort. Skin without rashes pallor or icterus. Neuro without focal deficits. CT noted and reviewedsignificant amount of solid stool notedespecially in the transverse and the beginning of the descending colon. Abdominal painwhile interestingly her story would fit the most with chemo or radiation induced colitis, the fact that she has significant amounts of solid stool on CT scan, the fact that her symptoms came and went fairly rapidly with no significant intervention besides supportive care, and her background HPI of her bowel habits over the last 6 weeks or soit seems actually most consistent with constipation and overflow as far as her loose stoolspossibly with an element of stercoral colitis, and possibly also that the colitis seen on CT scan is really just an imaging finding change related to the radiation treatment and is not symptomatic at all. Able to eat wellsafe/stable for home. Discussed utilizing MiraLAX to affect bowel movements more regularly and overcome the constipation more. safe/stable for home. Otherwise as above. Resident Activity Tracking Resident Involvement: Resident Care Provided Care Provided: Adult Hospital Medicine
--- NOTE | 2024-02-01 18:31 | Billing Data ---
Date of Service February 01, 2024 Coding Level of Care Code 47228 IN/OBS DISCH 30 MIN/LESS
== END 2024-02-01 15:42 | disposition home or self-care (01) | DRG 392 ==
LOC: ED 09:43 → SUATTDRO 14:49 → 3W 14:49